=== PATIENT | female | born 1940 | race Caucasian/White ===

== ENCOUNTER → 2016-05-22 | Outpatient (CLI) | payer MEDICARE ==
[~2016-05-22] MED LIST: AMLO5TAB2 PO; ASPI-892 PO; ATOR20TA66 PO; Atorvastatin Calcium PO; CA C1TAB66 PO; CALC-671 PO; CATHETER FLUSH 10 ML SYR IV PRN; CRAN450T9 PO; CRAN500T PO; FAMO20TA5 PO; Famotidine PO; IOHEXOL 350 MG/ML 100 ML (OMNIPAQUE 350) VIAL IV ONE; LOSA100T7 PO; LOSA50TA6 PO; MTP25TSR PO; MULT1CAP27 PO; NAPR-243 PO; NS 100 ML (IVPB) BAG IV ONE; OMEG-11 PO; OMEG-12 PO; SIMV20TA3 PO; SIMV40TA2 PO; TICA90TA PO; Ticagrelor PO
[2016-05-22 08:06] LABS: CREATININE SERUM 1.11 MG/DL (0.60-1.30)
--- NOTE | 2016-05-22 12:07 | Diagnostic Imaging Report ---
CTA of the neck with contrast: INDICATION: Carotid stenosis. FINDINGS: Contiguous axial sections were taken from the midportion of the skull to the lung apices following administration of intravenous contrast. Sagittal and coronal reconstructed images were also performed. MIP and 3D images were not obtained, however. There are no previous CTA neck examinations available for comparison. The previous carotid Doppler exam of 06/28/2013 noted atherosclerotic disease involving both carotid systems as well as a 60-79% stenosis of the internal carotid artery on the left. There was no sign of a hemodynamically significant stenosis of the internal carotid artery on the right. On this exam, there is heavy atherosclerotic plaque involving the origin of the internal carotid artery on the left. There does seem to be a 70-80% stenosis of the vessel in this region and this would be consistent with the findings on the previous ultrasound exam. There is also at least a moderate amount of atherosclerotic plaque involving the carotid bifurcation on the right. There is still no evidence for a hemodynamically significant stenosis in this region. The vertebral arteries are opacified and appear to be codominant. The intracranial arterial circulation, where visualized is unremarkable for an aneurysm of the [place] or for a hemodynamically significant stenosis. The brain, where visualized is also unremarkable for an acute abnormality. There is no sign of a mass lesion either. The images through the neck failed to show any sign of a mass or adenopathy. The thyroid gland is generally unremarkable. The lung apices are clear. The breasts, where visualized show no sign of a mass lesion. According to our records, the patient has not had a mammogram at this facility. If she has not had a mammogram elsewhere in the last 1-2 years, then a follow-up mammogram would be recommended for continued evaluation. The bone windows failed to show any sign of a fracture or of a destructive lesion. 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 IMPRESSION: 1. The atherosclerotic disease involving the carotid systems seen previously is again evident. There still is 70-80% stenosis of the origin of the internal carotid artery on the left. There is no sign of a hemodynamically significant stenosis of the carotid system on the right. The vertebral arteries are codominant. 2. There is no evidence for intracranial aneurysm or for a hemodynamically significant stenosis of the visualized intracranial circulation. 3. There is no acute abnormality identified and there is no mass or adenopathy involving the neck. 4. 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 5. There is no obvious breast mass. Additional considerations as above. Dictated by: Dictated on workstation # [id number]
== END ==
LOC: RAD 07:37
PROVIDERS: ATTEND Internal Medicine Cardiovascular Disease
DX: I65.23 Occlusion and stenosis of bilateral carotid arteries (principal)
CPT/HCPCS: 36415; 70498; 82565; 84520

== ENCOUNTER → 2018-05-03 | Outpatient (CLI) | payer MEDICARE ==
[~2018-05-03] MED LIST changes: -CATHETER FLUSH 10 ML SYR IV PRN; -IOHEXOL 350 MG/ML 100 ML (OMNIPAQUE 350) VIAL IV ONE; -NS 100 ML (IVPB) BAG IV ONE
== END ==
LOC: CARD 09:51
PROVIDERS: ATTEND Internal Medicine Cardiovascular Disease
DX: I25.10 Atherosclerotic heart disease of native coronary artery without angina pectoris (principal); I10 Essential (primary) hypertension; I44.7 Left bundle-branch block, unspecified; E78.5 Hyperlipidemia, unspecified; I48.91 Unspecified atrial fibrillation; I08.3 Combined rheumatic disorders of mitral, aortic and tricuspid valves
CPT/HCPCS: 93306

== ENCOUNTER → 2018-05-04 | Outpatient (CLI) | payer MEDICARE ==
[~2018-05-04] VITALS: Ht 162.6 cm; Wt 64.9 kg
[~2018-05-04] MED LIST changes: +CATHETER FLUSH 10 ML SYR IV PRN; +REGADENOSON 0.4 MG/5 ML SYR (LEXISCAN) IV ONE
[2018-05-04 09:11] VITALS: BP 126/58
[2018-05-04 09:14] VITALS: BP 125/64
--- NOTE | 2018-05-04 14:34 | STRESS TEST ---
DATE OF SERVICE: 05/04/2018 LEXISCAN MYOVIEW STRESS TEST REPORT REFERRING PHYSICIAN: Dr. Oliveira. Baseline heart rate is 53 and baseline blood pressure is 148/64. Baseline EKG is sinus rhythm with left bundle branch block. SUMMARY: The patient received 10.22 mCi of technetium-99 Myoview and the resting images were obtained. Then, the patient received 0.4 mg of Lexiscan followed by 30.2 mCi of technetium-99 Myoview. Throughout the test, there were no EKG changes. The resting and stress images were reviewed and compared in the short axis, horizontal long axis and vertical long axis views. Review of the images showed breast attenuation with reversible ischemia involving the mid to apical anterior wall, true apex, anterolateral wall and anterior septum. SSS is 16. SDS is 8. TID value 1.12. On the gated images, the left ventricle appeared to be in normal size with hypokinesia involving the mid to apical anterior wall true apex. Calculated ejection fraction is 54%. CONCLUSION: 1. The patient tolerated Lexiscan well. 2. Breast attenuation with reversible ischemia involving the mid to apical anterior wall true apex, anterolateral and anterior septum. 3. Normal left ventricular size with hypokinesia at the mid to apical anterior wall, true apex and anterolateral wall. Calculated ejection fraction is 54%. Job ID: [id number] DocumentID: [id number] Dictated Date: 05/04/2018 14:26:18 Slasher Machine Operator Date: 05/04/2018 14:34:06 Dictated By: MARY NESBITT MD
== END ==
LOC: CARD 06:58
PROVIDERS: ATTEND Internal Medicine Cardiovascular Disease
DX: I25.10 Atherosclerotic heart disease of native coronary artery without angina pectoris (principal); I10 Essential (primary) hypertension; I44.7 Left bundle-branch block, unspecified; E78.5 Hyperlipidemia, unspecified; I48.91 Unspecified atrial fibrillation
CPT/HCPCS: 78452; 93017

== ENCOUNTER 2018-05-18 06:43 | Day surgery (SDC) | payer MEDICARE ==
[~2018-05-18] VITALS: Ht 154.9 cm; Wt 61.2 kg
[2018-05-18] VITALS (11 sets, daily range): BP systolic 131–189; BP diastolic 59–72
[~2018-05-18 06:43] MED LIST changes: -CATHETER FLUSH 10 ML SYR IV PRN; +HEParin (CATH LAB) 2,000 ML IV ONE; +LIDOCAINE 1% INJ 20 ML 20 ML VIAL ONE; +NS IV 1000 ML 1,000 ML ONE; -REGADENOSON 0.4 MG/5 ML SYR (LEXISCAN) IV ONE
--- OUTSIDE RECORDS SUMMARY | 2018-05-18 06:46 | XMS REPORT ---
Discharge Summary 2.1 Created on: GIOVANA GARCIA : 1940 Sex: Female Author Author EZEQUIEL MICHELLE Organization Unknown Address [address] [facility] [address] [place], [place] [id number] Care Team Providers Care Record Center Specialist Name Role Phone NGUYEN BLAKE ARELLANO Attending ELI Das DO [facility] Functional Status No Data Found Immunization Immunization Date Status Additional Notes Code Code System pneumococcal polysaccharide PPV23 02/05/2016 Completed 33 CVX Pneumococcal conjugate PCV 13 08/21/2014 Completed 133 CVX Influenza, high dose seasonal 02/05/2016 Completed 135 CVX Influenza, seasonal, injectable 04/17/2014 Completed 141 CVX influenza, injectable, quadrivalent 05/02/2013 Completed 158 CVX influenza, trivalent, adjuvanted 03/22/2017 Completed 168 CVX Mental Status No Data Found Results ELBOW 2 VIEWS - Completed: 02/18/2017 16:24 LOINC: EXAMINATION:RightELBOW 2 VIEWSREASON FOR EXAM:Right elbow trauma COMPARISON: None.FINDINGS:No acute fracture or dislocation.No sizable joint effusion.Small calcific density adjacent to the lateral humeral epicondyle may represent calcific tendinitis.Reviewed and Electronically Signed by: Sheila Siegel Date/Time: 02/18/2017 4:34 PMJob ID#: [id number] Social History Type Status Start Date End Date Code Code System Smoking History Former smoker [id number] SNOMED-CT Smoking History Never smoker (Never Smoked) [id number] SNOMED-CT Vital Signs No Data Found Assessment No Data Found Hospital Discharge Instructions Should you have any questions prior to discharge, please contact a member of your healthcare team. If you have left the hospital and have any questions, please contact your primary care physician. Reason For Referral No Data Found Hospital Course You were admitted to [facility] on 02/18/2017 16:00 with a principal diagnosis of Laceration without foreign body of scalp, initial encounter You were discharged from [facility] on 02/18/2017 17:22 Medications No Data Found Procedures No Data Found Implants No Data Found Problems No Data Found Allergies Allergy Substance Reaction Severity Start Date Concern Status Code Code System No Known Allergies Active RxNorm Plan of Treatment No Data Found Encounters No Data Found Goals No Data Found Discharge Medications No Data Found Discharge Diagnosis Discharge Diagnosis Diagnosis Code Start Date Laceration without foreign body of scalp, initial encounter [id number] 02/18/2017 Health Concerns Section No Data Found
--- OUTSIDE RECORDS SUMMARY | 2018-05-18 06:46 | XMS REPORT | CCD ---
Author Author EZEQUIEL MICHELLE Organization Unknown Address [address] [facility] [address] [place] [address] Care Team Providers Care Group Home Paraprofessional Name Role Phone YUNIEL GONZÁLES MD Attphys Allergies Allergy Code Allergy Type Reaction Status No Known Allergies 0 Drug allergy Active Active Medications Unknown or Not Available. Problems Unknown or Not Available. Procedures Procedure Code Procedure Type Date Cataract removal insertion of lens; (-RT Right side of body) 28606 CPT 07/29/2016 Results Unknown or Not Available. Function Status Unknown or Not Available. History of Immunizations Immunization Code Date pneumococcal polysaccharide PPV23 33 02/05/2016 Pneumococcal conjugate PCV 13 133 08/21/2014 Influenza, high dose seasonal 135 02/05/2016 Influenza, seasonal, injectable 141 04/17/2014 influenza, injectable, quadrivalent 158 05/02/2013 Plan of Treatment Unknown or Not Available. Social History Smoking Status Code Start Date End Date Former smoker [id number] Vital Signs Unknown or Not Available. Function Status Unknown or Not Available. Goals Unknown or Not Available. ASSESSMENTS Unknown or Not Available. Health Concerns Section Unknown or Not Available.
--- OUTSIDE RECORDS SUMMARY | 2018-05-18 06:46 | XMS REPORT | CCD ---
Author Author JACK DUMONT Organization Unknown Address [address] [facility] [address] [place], [place] [id number] Care Team Providers Care Fish Butcher Name Role Phone HANDSHY ER, KEY SALDANA Attphys HANDSHY ER, KEY SALDANA Prisurg Vital Signs Unknown or Not Available. Allergies Allergy Code Allergy Type Reaction Status No Known Allergies 0 No known allergies Active Procedures Procedure Code Procedure Type Date ^CULTURE URINE IDENTIFICATION 427844770 SNOMED CT 2014 CULTURE URINE 749327796 SNOMED CT 02/17/2015 UA ROUTINE C&S IF IND 632378190 SNOMED CT 02/17/2015 COMPREHENSIVE METABOLIC PANEL 877843349 SNOMED CT 2014 CBC W/ AUTO DIFF (RFLX MAN DIFF IF IND) 7663348 SNOMED CT 02/17/2015 ^UA WITH MICRO 752287631 SNOMED CT 02/17/2015 ^CBC W/ MANUAL DIFF 60696052 SNOMED CT 02/17/2015 History of Immunizations Unknown or Not Available. Problems Unknown or Not Available. Results COMPREHENSIVE METABOLIC PANEL - Collect Date/Time: 02/17/2015 11:50 Test Name Code Test Result Test Units Test Ref Range GLUCOSE 2345-7 190 MG/DL L=70 H=100 SODIUM 2951-2 125 MEQ/L L=135 H=148 POTASSIUM 2823-3 4.3 MEQ/L L=3.5 H=5.3 CHLORIDE 2075-0 91 MEQ/L L=96 H=110 CO2 2028-9 17 MEQ/L L=22 H=29 BUN 3094-0 68 MG/DL L=8 H=22 CREATININE 2160-0 6.1 MG/DL L=0.6 H=1.6 SGOT/AST 1920-8 33 IU/L L=10 H=40 SGPT/ALT 1742-6 41 IU/L L=8 H=54 ALK PHOS 6768-6 83 IU/L L=35 H=115 TOTAL PROTEIN 2885-2 6.6 G/DL L=5.5 H=8.5 ALBUMIN 1751-7 3.4 G/DL L=3.1 H=5.4 TOTAL BILI 1975-2 0.9 MG/DL L=0.0 H=1.5 CALCIUM 02494-8 9.5 MG/DL L=8.2 H=10.6 AGE 74 yrs GFR NonAA 7 GFR AA 8 eGFR 7 mL/min/1.7 eGFR AA* 8 mL/min/1.7 CBC W/ AUTO DIFF (RFLX MAN DIFF IF IND) - Collect Date/Time: 02/17/2015 11:50 Test Name Code Test Result Test Units Test Ref Range WBC 95410-5 9.3 TH/CMM L=4.5 H=10.8 RBC 789-8 3.86 ML/CMM L=4.20 H=5.40 HGB 718-7 12.4 G/DL L=12.0 H=16.0 HCT 4544-3 34.6 % L=37.0 H=47.0 MCV 90 FL L=81 H=99 MCH 32.1 PG L=27.0 H=33.0 MCHC 35.8 G/DL L=31.0 H=36.0 RDW SD 44 FL L=36 H=50 RDW CV 13.5 % L=0.0 H=14.8 MPV 9.7 FL L=9.3 H=12.5 PLT 777-3 165 TH/CMM L=130 H=440 NRBC# 0.00 TH/CMM L=0.00 H=0.00 NRBC% 0.0 /100WBC L=0.0 H=2.0 %NEUT 93.3 % %LYMP 2.2 % %MONO 3.9 % %EOS 0.5 % %BASO 0.1 % #NEUT 8.66 TH/CMM L=2.10 H=8.20 #LYMP 0.20 TH/CMM L=0.90 H=5.20 #MONO 0.36 TH/CMM L=0.16 H=1.00 #EOS 0.05 TH/CMM L=0.00 H=0.80 #BASO 0.01 TH/CMM L=0.00 H=0.20 SEGS 53 % BANDS 43 % LYMPHS 3 % MONOS 1 % MANUAL DIFF SEE BELOW N/A UA ROUTINE C&S IF IND - Collect Date/Time: 02/17/2015 12:25 Test Name Code Test Result Test Units Test Ref Range COLOR YELLOW N/A NL: YELLOW APPEARANCE CLEAR N/A NL: CLEAR SPEC GRAV 1.015 N/A NL: 1.002 - 1.022 pH 6.5 N/A NL: 5 - 9 PROTEIN >=300 N/A NL: NEGATIVE mg/dl GLUCOSE NEGATIVE N/A NL: NEGATIVE mg/dl KETONE NEGATIVE N/A NL: NEGATIVE mg/dl BILIRUBIN NEGATIVE N/A NL: NEGATIVE BLOOD MODERATE N/A NL: NEGATIVE NITRITE NEGATIVE N/A NL: NEGATIVE LEUK SCREEN MODERATE N/A NL: NEGATIVE MICRO INDICATED? SEE BELOW N/A WBC/HPF 100-200 N/A NL: NEGATIVE RBC/HPF 10-20 N/A NL: NEGATIVE CASTS/LPF NEGATIVE N/A NL: NEGATIVE CRYSTALS 1+ AMORPHOUS N/A NL: NEGATIVE MUCOUS THRDS FEW N/A NL: NEGATIVE BACTERIA 2++ N/A NL: NEGATIVE EPITH CELLS 1+ SQUAMOUS N/A NL: NEGATIVE TRICHOMONAS NEGATIVE N/A NL: NEGATIVE YEAST NEGATIVE N/A NL: NEGATIVE CULT SET UP? YES N/A Active Medications Unknown or Not Available. Medications Administered During Visit Unknown or Not Available. Encounters Encounter Diagnosis Diagnosis Code Start Date Acute renal failure syndrome [id number] 02/17/2015 Social History Smoking Status Code Start Date End Date Former smoker [id number] Patient Decision Aids Unknown or Not Available. Discharge Instructions You were admitted to [facility] on 02/17/2015 with a principal diagnosis of Acute renal failure syndrome . You were discharged from [facility] on 02/17/2015. Should you have any questions prior to discharge, please contact a member of your healthcare team. If you have left the hospital and have any questions, please contact your primary care physician. Chief Complaint and Reason For Visit Chief Complaint Date of Onset ABDOMINAL PAIN LEG PAIN SHOULDER PAIN Function Status Unknown or Not Available. Plan of Care Unknown or Not Available. Referral/Transition of Care Unknown or Not Available.
--- OUTSIDE RECORDS SUMMARY | 2018-05-18 06:47 | XMS REPORT | CCD ---
Author Author JACK DUMONT Organization Unknown Address [address] [facility] [address] [place], [place] [phone] Care Team Providers Care Iron And Steel Work Supervisor Name Role Phone NGUYEN, BLAKE DO Attphys NGUYENJOZEFBLAKE DO Prisurg Vital Signs Unknown or Not Available. Allergies Allergy Code Allergy Type Reaction Status No Known Allergies 0 No known allergies Active Procedures Procedure Code Procedure Type Date CBC W/ AUTO DIFF (RFLX MAN DIFF IF IND) 3889085 SNOMED CT 02/27/2015 COMPREHENSIVE METABOLIC PANEL 109064495 SNOMED CT [address] 02/27/[address] 02/27/2015 LACTIC ACID 4219325 SNOMED [address] 02/27/2015 C REACTIVE PROTEIN 96394100 SNOMED CT 02/27/2015 SED RATE 809177839 SNOMED CT 02/27/2015 UA ROUTINE C&S IF IND 063876383 SNOMED CT 02/27/2015 ^CBC W/ MANUAL DIFF 33790606 SNOMED CT 02/27/2015 CULTURE URINE 196471671 SNOMED CT 02/27/2015 ^UA WITH MICRO 171251675 SNOMED CT 02/28/2015 TYPE AND SCREEN 34666836 SNOMED CT 02/28/2015 H and H 00588237 SNOMED CT 02/28/2015 .BB FFP 350116119 SNOMED CT 02/28/2015 ABDOMEN 2 VIEW DECUB/UPRIGHT 089717028 SNOMED CT 2014 [address] ABD AND PELVIS W/WO CONTRAST 796216905 SNOMED CT 2014 LOCM 300-349 MG/ML, PER ML 192326831 SNOMED CT 02/28/2015 History of Immunizations Unknown or Not Available. Problems Unknown or Not Available. Results COMPREHENSIVE METABOLIC PANEL - Collect Date/Time: 02/27/2015 23:05 Test Name Code Test Result Test Units Test Ref Range GLUCOSE 2345-7 173 MG/DL L=70 H=100 SODIUM 2951-2 136 MEQ/L L=135 H=148 POTASSIUM 2823-3 3.3 MEQ/L L=3.5 H=5.3 CHLORIDE 2075-0 105 MEQ/L L=96 H=110 CO2 2028-9 15 MEQ/L L=22 H=29 BUN 3094-0 27 MG/DL L=8 H=22 CREATININE 2160-0 1.5 MG/DL L=0.6 H=1.6 SGOT/AST 1920-8 20 IU/L L=10 H=40 SGPT/ALT 1742-6 20 IU/L L=8 H=54 ALK PHOS 6768-6 72 IU/L L=35 H=115 TOTAL PROTEIN 2885-2 6.1 G/DL L=5.5 H=8.5 ALBUMIN 1751-7 3.4 G/DL L=3.1 H=5.4 TOTAL BILI 1975-2 1.1 MG/DL L=0.0 H=1.5 CALCIUM 20657-8 8.5 MG/DL L=8.2 H=10.6 AGE 74 yrs GFR NonAA 34 GFR AA 41 eGFR 34 mL/min/1.7 eGFR AA* 41 mL/min/1.7 LIPASE - Collect Date/Time: 02/27/2015 23:05 Test Name Code Test Result Test Units Test Ref Range LIPASE 3040-3 316 U/L L=8 H=78 CBC W/ AUTO DIFF (RFLX MAN DIFF IF IND) - Collect Date/Time: 02/27/2015 23:05 Test Name Code Test Result Test Units Test Ref Range WBC 23014-6 13.4 TH/CMM L=4.5 H=10.8 RBC 789-8 2.75 ML/CMM L=4.20 H=5.40 HGB 718-7 8.7 G/DL L=12.0 H=16.0 HCT 4544-3 25.4 % L=37.0 H=47.0 MCV 92 FL L=81 H=99 MCH 31.6 PG L=27.0 H=33.0 MCHC 34.3 G/DL L=31.0 H=36.0 RDW SD 51 FL L=36 H=50 MPV 8.8 FL L=9.3 H=12.5 PLT 777-3 437 TH/CMM L=130 H=440 %NEUT 87.7 % %LYMP 7.2 % %MIXED 5.10 % L=2.00 H=25.00 #NEUT 11.70 TH/CMM L=2.10 H=8.20 #LYMP 1.00 TH/CMM L=0.90 H=5.20 #MIXED 0.70 TH/CMM SEGS 85 % BANDS 6 % LYMPHS 5 % MONOS 4 % MANUAL DIFF SEE BELOW N/A H and H - Collect Date/Time: 02/28/2015 03:10 Test Name Code Test Result Test Units Test Ref Range HGB 718-7 8.4 G/DL L=12.0 H=16.0 HCT 4544-3 24.6 % L=37.0 H=47.0 SED RATE - Collect Date/Time: 02/27/2015 23:05 Test Name Code Test Result Test Units Test Ref Range SEDRATE 4537-7 111 MM/HR L=0 H=30 PT/PTT - Collect Date/Time: 02/27/2015 23:05 Test Name Code Test Result Test Units Test Ref Range PROTIME 45621-0 43.2 SEC L=9.9 H=11.9 INR 4.1 PTT 3173-2 47.6 SEC L=22.2 H=37.2 UA ROUTINE C&S IF IND - Collect Date/Time: 02/28/2015 00:01 Test Name Code Test Result Test Units Test Ref Range COLOR YELLOW N/A NL: YELLOW APPEARANCE CLEAR N/A NL: CLEAR SPEC GRAV 1.020 N/A NL: 1.002 - 1.022 pH 6.0 N/A NL: 5 - 9 PROTEIN 30 N/A NL: NEGATIVE mg/dl GLUCOSE 100 N/A NL: NEGATIVE mg/dl KETONE 15 N/A NL: NEGATIVE mg/dl BILIRUBIN NEGATIVE N/A NL: NEGATIVE BLOOD MODERATE N/A NL: NEGATIVE NITRITE NEGATIVE N/A NL: NEGATIVE LEUK SCREEN SMALL N/A NL: NEGATIVE MICRO INDICATED? SEE BELOW N/A WBC/HPF 10-20 N/A NL: NEGATIVE RBC/HPF 0-5 N/A NL: NEGATIVE CASTS/LPF NEGATIVE N/A NL: NEGATIVE CRYSTALS NEGATIVE N/A NL: NEGATIVE MUCOUS THRDS NEGATIVE N/A NL: NEGATIVE BACTERIA FEW N/A NL: NEGATIVE EPITH CELLS 2++ SQUAMOUS N/A NL: NEGATIVE TRICHOMONAS NEGATIVE N/A NL: NEGATIVE YEAST NEGATIVE N/A NL: NEGATIVE CULT SET UP? YES N/A .BB FFP - Collect Date/Time: 02/28/2015 04:02 Test Name Code Test Result Test Units Test Ref Range Unit Blood Type O Pos N/A Unit Number [id number] FFP CPD N/A Status Information Ready N/A Product Identification FFP N/A TYPE AND SCREEN - Collect Date/Time: 02/28/2015 03:10 Test Name Code Test Result Test Units Test Ref Range ABO/Rh Type O Negative N/A Antibody Screen-Gel Negative N/A C REACTIVE PROTEIN - Collect Date/Time: 02/27/2015 23:05 Test Name Code Test Result Test Units Test Ref Range C REACTIVE PROTEIN 1988-5 9.3 MG/DL L=0.0 H= 1.0 LACTIC ACID - Collect Date/Time: 02/27/2015 23:05 Test Name Code Test Result Test Units Test Ref Range LACTIC ACID 2524-7 1.4 mmol/L L=0.5 H=1.6 MAGNESIUM - Collect Date/Time: 02/27/2015 23:05 Test Name Code Test Result Test Units Test Ref Range MAGNESIUM 54512-8 1.1 MG/DL L=1.7 H=2.8 Active Medications Medication Code Dose Units Frequency Route Modification Start Date/Time PHYTONADIONE [VITAMIN K] 10MG/ML AMP 471593 10 MG X1 SQ 02/28/2015 03:25 Medications Administered During Visit Unknown or Not Available. Encounters Encounter Diagnosis Diagnosis Code Start Date Acute pancreatitis, unspecified K859 02/27/2015 Social History Smoking Status Code Start Date End Date Former smoker [id number] Patient Decision Aids Unknown or Not Available. Discharge Instructions You were admitted to [facility] on 02/27/2015 with a principal diagnosis of Acute pancreatitis, unspecified. You were discharged from [facility] on 02/28/2015. Should you have any questions prior to discharge, please contact a member of your healthcare team. If you have left the hospital and have any questions, please contact your primary care physician. Chief Complaint and Reason For Visit Chief Complaint Date of Onset UNKNOWN Function Status Unknown or Not Available. Plan of Care Unknown or Not Available. Referral/Transition of Care Unknown or Not Available.
--- OUTSIDE RECORDS SUMMARY | 2018-05-18 06:49 | XMS REPORT | Clinical Summary ---
Author Author User, ABILIO Deidra [facility] Address Unknown Phone Allergies, Adverse Reactions, Alerts Allergy Name Reaction Description Start Date Severity Status Provider No Known Allergies Sonny Mendiola Conditions or Problems Problem Name Problem Code Onset Date Status Entry Date Provider Comment Standard Description Annotate CERUMEN IMPACTION, BILATERAL 380.4 Resolved Viola Oliveira Impacted cerumen ELEVATED BLOOD PRESSURE WITHOUT DIAGNOSIS OF HYPERTENSION 796.2 Resolved Viola Oliveira Elevated blood pressure reading without diagnosis of hypertension HYPERCHOLESTEROLEMIA 272.0 Active Viola Oliveira Pure hypercholesterolemia OSTEOARTHRITIS 715.90 Active Viola Oliveira Osteoarthrosis, unspecified whether generalized or localized, involving unspecified site ONYCHOMYCOSIS, TOENAILS 110.1 Resolved Viola Oliveira Dermatophytosis of nail HYPERTRIGLYCERIDEMIA 272.1 Active Viola Oliveira Pure hyperglyceridemia HYPERTENSION 401.1 Active Viola Oliveira Benign essential hypertension VACCINE AGAINST STREPTOCOCCUS PNEUMONIAE V03.82 Resolved Viola Oliveira Need for prophylactic vaccination against Streptococcus pneumoniae [pneumococcus] VAGINAL DISCHARGE 623.5 Resolved Viola Oliveira Leukorrhea, not specified as infective 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 Viola Oliveira Intestinal disaccharidase deficiencies and disaccharide malabsorption DIABETES MELLITUS, NONINSULIN DEPENDENT (NIDDM) 250.02 Active Viola Oliveira Diabetes mellitus without mention of complication, type II or unspecified type, uncontrolled BUNDLE BRANCH BLOCK, LEFT 426.3 Active Viola Oliveira Other left bundle branch block CAROTID ARTERY STENOSIS, BILATERAL 433.10 Active Viola Oliveira Occlusion and stenosis of carotid artery, without mention of cerebral infarction EDEMA LEG 782.3 Resolved Viola Oliveira Edema SHOULDER PAIN 719.41 Active Viola Oliveira Pain in joint involving shoulder region ACTINIC KERATOSIS 702.0 Resolved Viola Oliveira Actinic keratosis SYNCOPE 780.2 Active Viola Oliveira Syncope and collapse Medication List Medication Instructions Start Date Stop Date Generic Name NDC Status Provider Patient Instruction TOPROL XL 25 MG TB24 1 PO daily METOPROLOL SUCCINATE 29513366710 Active Viola Oliveira LASIX 20 MG TAB 1 PO QD FUROSEMIDE 11998458478 No Longer Active Viola Oliveira COZAAR 50 MG TAB 1 PO daily LOSARTAN POTASSIUM 18350505136 Active Viola Oliveira NORVASC 5 MG TAB 1 PO QD AMLODIPINE BESYLATE 30644571409 No Longer Active Viola Oliveira SIMVASTATIN 20 MG TABS 1 PO Daily SIMVASTATIN 89860504970 Active Viola Oliveira LIDOCAINE-PRILOCAINE 2.5-2.5 % CREA Apply to affected areas BID prn LIDOCAINE-PRILOCAINE 05342899738 Active Viola Oliveira [facility] CORTISONE + MAX ST 1 % CREA apply to affected areas BID prn HYDROCORTISONE 71997352412 No Longer Active Viola Oliveira ASPIRIN 81 MG TAB 1 PO daily ASPIRIN 94129924504 Active Viola Oliveira PREMARIN 0.625 MG/GM CREA 1/2 applicatorfull per vagina twcie weekly ESTROGENS, CONJUGATED VAGINAL 94677191694 Active Sharita Lee LAMISIL 250 MG TAB 1 PO daily for 6 weeks TERBINAFINE HCL 77599931476 No Longer Active Viola Maci Roxanne COLACE 60 MG/15ML SYRP 3 drops in right ear, let stand for 10 minutes then rinse with warm water for 7 days (provide bottle with dropper) 2010 DOCUSATE SODIUM 27698466394 No Longer Active Violayessi Laceye Roxanne LAMISIL 250 MG TAB 1 PO daily for 6 weeks TERBINAFINE HCL 32521947167 No Longer Active Violayessi Oliveira CRANBERRY 500 MG CAPS 1 PO daily CRANBERRY 95914442826 Active Violayessi Oliveira GLUCOSAMINE CHONDR 1500 COMPLX CAPS 1 PO daily GLUCOSAMINE-CHONDROIT- VIT C-MN 93160681685 Active Violayessi Oliveira CALTRATE 600 PLUS-VIT D 600-200 MG-IU TABS 1 PO BID CALCIUM-VITAMIN D Active Violayessi Laceye Roxanne FISH OIL 1000 MG CAPS 1 PO daily OMEGA-3 FATTY ACIDS 57933504519 Active Viola Maci Roxanne NAPROXEN 500 MG TABS 1 PO BID NAPROXEN 19953515067 Active Viola Oliveira Immunizations Vaccine Administration Date Value Standard Description Influenza vaccine given DONE influenza virus vaccine, unspecified formulation Influenza vaccine given Done influenza virus vaccine, unspecified formulation pneumococcal immunization administered Dr Oliveira pneumococcal polysaccharide vaccine, 23 valent Vital Signs Date Name Value Unit Range Description blood pressure, diastolic - 8462-4 80 mm[Hg] BP calix blood pressure, systolic - 8480-6 140 mm[Hg] BP sys pulse rate E&M - 8867-4 68 /min Heart rate respiratory rate E&M - 9279-1 14 /min Resp rate temperature E&M 98.6 [degF] Body temperature weight E&M - 3141-9 145 [lb_av] Weight Measured blood pressure, diastolic - 8462-4 70 mm[Hg] BP calix blood pressure, systolic - 8480-6 130 mm[Hg] BP sys pulse rate E&M - 8867-4 68 /min Heart rate respiratory rate E&M - 9279-1 14 /min Resp rate weight E&M - 3141-9 141 [lb_av] Weight Measured blood pressure, diastolic - 8462-4 74 mm[Hg] BP calix blood pressure, systolic - 8480-6 132 mm[Hg] BP sys pulse rate E&M - 8867-4 66 /min Heart rate respiratory rate E&M - 9279-1 14 /min Resp rate weight E&M - 3141-9 248 [lb_av] Weight Measured blood pressure, diastolic - 8462-4 72 mm[Hg] BP calix blood pressure, systolic - 8480-6 142 mm[Hg] BP sys pulse rate E&M - 8867-4 76 /min Heart rate respiratory rate E&M - 9279-1 14 /min Resp rate temperature E&M 98.6 [degF] Body temperature weight E&M - 3141-9 145 [lb_av] Weight Measured blood pressure, diastolic - 8462-4 60 mm[Hg] BP calix blood pressure, systolic - 8480-6 134 mm[Hg] BP sys pulse rate E&M - 8867-4 76 /min Heart rate respiratory rate E&M - 9279-1 14 /min Resp rate weight E&M - 3141-9 142 [lb_av] Weight Measured blood pressure, diastolic - 8462-4 74 mm[Hg] BP calix blood pressure, systolic - 8480-6 150 mm[Hg] BP sys pulse rate E&M - 8867-4 76 /min Heart rate respiratory rate E&M - 9279-1 14 /min Resp rate weight E&M - 3141-9 142 [lb_av] Weight Measured Diagnostic Results Date Name Value Unit Range Description Clinical Lists Update: CBC,CMP,FLP,TSH,HGA1C - Chemistry Estimated Glomerular Filtration Rate (calc) >60 mL/min/1.73m2 albumin, serum 4.6 g/dL cholesterol/HDL ratio, serum, percent 4.1 sodium, serum 142 mmol/L triglyceride, serum, fasting 142 mg/dL bilirubin, serum, total 1.0 mg/dL alanine aminotransferase (SGPT), serum 24 U/L aspartate aminotransferase (SGOT), serum 24 U/L protein, total, serum 7.5 g/dL potassium, serum 4.0 mmol/L LDL cholesterol, serum 115 mg/dL thyroid stimulating hormone, serum 3.10 u[iU]/mL hemoglobin A1C, blood, as % of total hemoglobin 6.0 % HDL cholesterol, serum 46 mg/dL creatinine, serum 0.8 mg/dL carbon dioxide, venous blood 26 mmol/L cholesterol, serum 189 mg/dL chloride, serum 105 mmol/L calcium, serum 10.1 mg/dL urea nitrogen, blood 23 mg/dL alkaline phosphatase, serum 66 U/L glucose, plasma fasting 130 mg/dL Clinical Lists Update: CBC,CMP,FLP,TSH,HGA1C - Hematology red blood cell distribution width 13.4 % mean corpuscular volume, RBC 94 fL leukocyte count, blood 6.0 10*3/mm3 erythrocyte (RBC) count 4.79 10*6/mm3 platelet count 272 10*3/mm3 hemoglobin, blood 15.0 g/dL hematocrit, blood 44.8 % Clinical Lists Update: CMP,Chol,Trig,HgA1c - Chemistry albumin, serum 4.1 g/dL bilirubin, serum, total 0.8 mg/dL potassium, serum 3.7 mmol/L urea nitrogen, blood 18 mg/dL glucose, plasma fasting 131 mg/dL calcium, serum 9.9 mg/dL protein, total, serum 7.2 g/dL chloride, serum 105 mmol/L triglyceride, serum, fasting 131 mg/dL cholesterol, serum 174 mg/dL aspartate aminotransferase (SGOT), serum 20 U/L carbon dioxide, venous blood 28 mmol/L Estimated Glomerular Filtration Rate (calc) >60 mL/min/1.73m2 creatinine, serum 0.7 mg/dL alanine aminotransferase (SGPT), serum 21 U/L sodium, serum 145 mmol/L hemoglobin A1C, blood, as % of total hemoglobin 7.2 % alkaline phosphatase, serum 67 U/L Clinical Lists Update: CMP,FLP,HgA1c - Chemistry alkaline phosphatase, serum 60 U/L albumin, serum 4.1 g/dL urea nitrogen, blood 20 mg/dL calcium, serum 9.3 mg/dL chloride, serum 106 mmol/L cholesterol, serum 185 mg/dL carbon dioxide, venous blood 26 mmol/L creatinine, serum 0.7 mg/dL HDL cholesterol, serum 43 mg/dL hemoglobin A1C, blood, as % of total hemoglobin 7.4 % potassium, serum 4.0 mmol/L protein, total, serum 7.1 g/dL aspartate aminotransferase (SGOT), serum 24 U/L alanine aminotransferase (SGPT), serum 20 U/L bilirubin, serum, total 0.7 mg/dL triglyceride, serum, fasting 174 mg/dL sodium, serum 143 mmol/L cholesterol/HDL ratio, serum, percent 4.3 glucose, plasma fasting 124 mg/dL Estimated Glomerular Filtration Rate (calc) 82 mL/min/1.73m2 LDL cholesterol, serum 107 mg/dL Encounters Code Encounter Date Provider Facility CPT-44344 Ofc Vst, Est Level III 21:25:49 CDT Ivolayessi Oliveira DO, FACP CPT-78566 Ofc Vst, Est Level III 15:36:35 [facility] Viola Oliveira DO, FACP CPT-88126 Ofc Vst, Est Level IV 20:17:06 CDT Viola Oliveira DO, FACP CPT-08266 Ofc Vst, Est Level III 14:15:34 CDT Violayessi Oliveira DO, FACP CPT-15652 Ofc Vst, Est Level III 21:32:22 CDT Violayessi Oliveira [facility] CPT-76329 Ofc Vst, Est Level III 13:00:17 CDT Viola Oliveira DO, FACP CPT-24136 Ofc Vst, Est Level IV 16:22:26 CDT Violayessi Oliveira [facility] CPT-92126 Ofc Vst, Est Level IV 10:26:19 CDT Violayessi Oliveira [facility] CPT-31160 Ofc Vst, Est Level IV 10:32:54 [facility] Viola Oliveira DO, FACP CPT-68691 Ofc Vst, Est Level IV 11:02:12 CDT Violayessi Oliveira DO, FACP CPT-53038 Ofc Vst, Est Level IV 11:21:29 [facility] Viola Oliveira DO, FACP CPT-88849 Ofc Vst, Est Level III 10:23:18 [facility] Viola Oliveira DO, FACP CPT-99775 Ofc Vst, New Level IV 13:34:26 [facility] Viola Oliveira DO, FACP Procedures Code Procedure Name Date Entry Date Standard Description CPT-G0439 Medicare Annual Wellness Visit 16:28:55 CDT CPT-11558 Cryopathy Skin 20:17:06 CDT CPT-G8445 E-Prescribing Not sent due to no medication given 21:32: 22 CDT CPT-G8443 E-Prescribing Medication Sent 19:59:24 [facility] CPT-79899 Ear Wax Removal 19:59:24 [facility] CPT-G0439 Medicare Annual Wellness Visit 19:59:24 [facility] CPT-G8443 E-Prescribing Medication Sent 13:00:17 CDT CPT-G8443 E-Prescribing Medication Sent 13:12:57 [facility] CPT-G0439 Medicare Annual Wellness Visit 13:12:57 [facility] CPT-G0402 Medicare Annual Wellness Visit Initial 11:01:02 CDT CPT-00606 Ear Wax Removal 11:02:12 CDT CPT-63064 Injection, Pneumovax 11:02:12 CDT CPT-58688 Ear Wax Removal 10:23:18 [facility]
--- OUTSIDE RECORDS SUMMARY | 2018-05-18 06:49 | XMS REPORT | Clinical Summary ---
Author Author User, ABILIO Deidra [facility] Address Unknown Phone Allergies, Adverse Reactions, [...] MG TB24 1 PO daily METOPROLOL SUCCINATE 77601903412 Active Viola Oliveira LASIX 20 MG TAB 1 PO QD FUROSEMIDE 97307644845 No Longer Active Viola Oliveira COZAAR 50 MG TAB 1 PO daily LOSARTAN POTASSIUM 08868756289 Active Viola Oliveira NORVASC 5 MG TAB 1 PO QD AMLODIPINE BESYLATE 48794723209 No Longer Active Viola Oliveira SIMVASTATIN 20 MG TABS 1 PO Daily SIMVASTATIN 37478602410 Active Viola Oliveira LIDOCAINE-PRILOCAINE 2.5-2.5 % CREA Apply to affected areas BID prn LIDOCAINE-PRILOCAINE 48926350652 Active Viola Oliveira [facility] CORTISONE + MAX ST 1 % CREA apply to affected areas BID prn HYDROCORTISONE 35398578405 No Longer Active Viola Oliveira ASPIRIN 81 MG TAB 1 PO daily ASPIRIN 61879589982 Active Viola Oliveira PREMARIN 0.625 MG/GM CREA 1/2 applicatorfull per vagina twcie weekly ESTROGENS, CONJUGATED VAGINAL 30697581876 Active Sharita Lee LAMISIL 250 MG TAB 1 PO daily for 6 weeks TERBINAFINE HCL 27928865924 No Longer Active Viola Maci Roxanne COLACE 60 MG/15ML SYRP 3 drops in right ear, let stand for 10 minutes then rinse with warm water for 7 days (provide bottle with dropper) 2010 DOCUSATE SODIUM 05336388688 No Longer Active Violayessi Laceye Roxanne LAMISIL 250 MG TAB 1 PO daily for 6 weeks TERBINAFINE HCL 79211373862 No Longer Active Violayessi Oliveira CRANBERRY 500 MG CAPS 1 PO daily CRANBERRY 39248615856 Active Violayessi Oliveira GLUCOSAMINE CHONDR 1500 COMPLX CAPS 1 PO daily GLUCOSAMINE-CHONDROIT- VIT C-MN 18336919118 Active Violayessi Oliveira CALTRATE 600 PLUS-VIT D 600-200 MG-IU TABS 1 PO BID CALCIUM-VITAMIN D Active Violayessi Oliveira FISH OIL 1000 MG CAPS 1 PO daily OMEGA-3 FATTY ACIDS 83231480786 Active Viola Maci Roxanne NAPROXEN 500 MG TABS 1 PO BID NAPROXEN 04617428030 Active Viola Oliveira Immunizations Vaccine Administration Date Value Standard Description Influenza vaccine given DONE influenza virus vaccine, unspecified formulation Influenza vaccine given Done influenza virus vaccine, unspecified formulation pneumococcal immunization administered Dr Oliveira pneumococcal polysaccharide vaccine, 23 valent Vital Signs Date Name Value Unit Range Description blood pressure, diastolic - 8462-4 70 mm[Hg] [...] mg/dL Encounters Code Encounter Date Provider Facility CPT-20199 Ofc Vst, Est Level III 21:25:49 CDT Violayessi Das Roxanne, DO, FACP CPT-31936 Ofc Vst, Est Level III 15:36:35 [facility] Viola Das Roxanne, DO, FACP CPT-24292 Ofc Vst, Est Level IV 20:17:06 CDT Viola Maci Das Roxanne, DO, FACP CPT-27444 Ofc Vst, Est Level III 14:15:34 CDT Viola Maci Das Roxanne, DO, FACP CPT-87040 Ofc Vst, Est Level III 21:32:22 CDT Viola Maci Olive[facility] CPT-47142 Ofc Vst, Est Level III 13:00:17 CDT Violayessi Das Roxanne, DO, FACP CPT-67969 Ofc Vst, Est Level IV 16:22:26 CDT Viola Maci Olive[facility] CPT-96817 Ofc Vst, Est Level IV 10:26:19 CDT Viola Maci Olive[facility] CPT-75205 Ofc Vst, Est Level IV 10:32:54 [facility] Viola Das Roxanne, DO, FACP CPT-81717 Ofc Vst, Est Level IV 11:02:12 CDT Violayessi Das Roxanne, DO, FACP CPT-19306 Ofc Vst, Est Level IV 11:21:29 [facility] Viola Simmonsner Viola Das Roxanne, DO, FACP CPT-13503 Ofc Vst, Est Level III 10:23:18 [facility] Viola Simmonsner Violayessi Oliveira, DO, FACP CPT-38518 Ofc Vst, New Level IV 13:34:26 [facility] Viola Das Roxanne, DO, FACP Procedures Code Procedure Name Date Entry Date Standard Description CPT-G0439 Medicare Annual Wellness Visit 16:28:55 CDT CPT-89371 Cryopathy Skin 20:17:06 CDT CPT-G8445 E-Prescribing Not sent due to no medication given 21:32: 22 CDT CPT-G8443 E-Prescribing Medication Sent 19:59:24 [facility] CPT-27374 Ear Wax Removal 19:59:24 [facility] CPT-G0439 Medicare Annual Wellness Visit 19:59:24 [facility] CPT-G8443 E-Prescribing Medication Sent 13:00:17 CDT CPT-G8443 E-Prescribing Medication Sent 13:12:57 [facility] CPT-G0439 Medicare Annual Wellness Visit 13:12:57 [facility] CPT-G0402 Medicare Annual Wellness Visit Initial 11:01:02 CDT CPT-97801 Ear Wax Removal 11:02:12 CDT CPT-94505 Injection, Pneumovax 11:02:12 CDT CPT-55166 Ear Wax Removal 10:23:18 [facility]
--- OUTSIDE RECORDS SUMMARY | 2018-05-18 06:51 | XMS REPORT ---
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 Medications Active Name Start Date Estimated Completion Date SIG Comments Tessalon Perles 100 mg oral capsule 05/24/2015 take 1 capsule (100 mg) by oral route every 4 hours as needed Name Start Date Expiration Date SIG Comments simvastatin 40 mg oral tablet 04/29/2009 08/27/2009 take 1 tablet (40 mg) by oral route once daily in the evening for 30 days hydrocortisone acetate 1 % topical ointment 06/24/2009 07/08/2009 apply to the affected area(s) by topical route 2 times per day for 14 days Naprosyn 500 mg oral tablet 06/24/2009 11/21/2009 take 1 tablet (500 mg) by oral route every 12 hours with food for 30 days Zithromax Z-Anuj 250 mg oral tablet 05/22/2015 05/27/2015 take 2 tablets (500 mg ) by oral route once daily for 1 day then 1 tablet (250 mg) by oral route once daily for 4 days Problem List Not available. Vital Signs Date Time BP-Sys(mm[Hg] BP-Leticia(mm[Hg]) HR(bpm) RR(rpm) Temp WT HT HC BMI BSA BMI Percentile O2 Sat(%) 05/28/2015 11:07:00 AM 144 mmHg 78 mmHg 68 bpm 18 rpm 98.1 F 132 lbs 97 % 05/22/2015 2:16:00 PM 122 mmHg 70 mmHg 68 bpm 18 rpm 98.2 F 131 lbs 64 in 22.4859 kg/m 1.638 m 98 % 05/27/2009 9:28:00 AM 146 mmHg 92 mmHg 80 bpm 18 rpm 149 lbs Social History Name Description Comments Quit Smoking started in 1959 and quit in 1977 Alcohol Use - Occasional 1 drink weekly. History of Procedures Date Ordered Description Order Status 04/23/2009 12:00 AM ROUTINE VENIPUNCTURE Reviewed 04/23/2009 12:00 AM COMPLETE CBC W/AUTO DIFF WBC Reviewed 04/23/2009 12:00 AM COMPREHEN METABOLIC PANEL Reviewed 04/23/2009 12:00 AM LIPID PANEL Reviewed Results Summary Data and Description Results 05/27/2009 9:49 AM Cholest Cry Stone Ql IR 184.0 %Mammogram -Women over 40 Ordered Pap Smear Negative History Of Immunizations Not available. 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 9:30AM Onychomycosis Of Toenail May 27 2009 9:30AM Eustachian tube dysfunction, bilateral b 2015 2:16PM Moderate Acute Cough b 2015 2:16PM Mild Acute Post-nasal drainage b 2015 2:16PM Upper respiratory tract infection, unspecified type b 2015 2:16PM Mild Acute Respiratory System And Chest Symptoms b 2015 2:16PM Upper respiratory tract infection, unspecified type b 2015 6:33AM Payers Insurance Name Company Name Plan Name Plan Number Policy Number Policy Group Number Start Date Medicare Part A Medicare Part A [id number] N/A BCBS [facility] [id number] Friday, 2009 Medicare Part B Medicare Of [place] [id number] Friday, 2004 History of Encounters Visit Date Visit Type Provider 05/28/2015 Office visit GEMINI MAXWELL 05/22/2015 Office visit GEMINI MAXWELL 12/17/2011 Hospital Sp[facility]er Hurtado MD 05/27/2009 Office visit Lang Meraz DO 02/07/2009 Office visit Lang Meraz DO 01/09/2009 Laboratory Cathleen MAXWELL
--- OUTSIDE RECORDS SUMMARY | 2018-05-18 06:53 | XMS REPORT | Continuity of Care Document ---
Author Author [facility] Address Unknown Phone Unavailable Allergies Active Description Code Type Severity Reaction Onset Reported/Identified Relationship to Patient Clinical Status Yes No Known Allergies [id number] N /A N/A Yes BRILINTA MILD OTHER Yes CODEINE SULFATE MILD OTHER Yes No Known Drug Allergies [id number] Drug Allergy Unknown N/A 01/05/2012 Medications Medication Packaging Start Date Stop Date Route Dosage Sig LACTATED RINGERS 1000CC IV BAG INJ ml 12/15/2017 12/22/2017 CONTINUOUSEVERY 0 Hour Problems Date Dx Coded Attending Type Code Diagnosis Diagnosed By 10/03/2014 MARY NESBITT MD Ot 272.4 10/03/2014 MARY NESBITT MD Ot 401.9 10/03/2014 MARY NESBITT MD Ot 426.3 10/03/2014 MARY NESBITT MD Ot 745.5 10/04/2014 GEE THOMAS Ot 272.4 HYPERLIPIDEMIA NEC/NOS 10/04/2014 GEE THOMAS Ot 401.9 HYPERTENSION NOS 10/04/2014 GEE THOMAS Ot 414.01 CORONARY ATHEROSCLEROSIS OF [place] CORON 10/04/2014 GEE THOMAS Ot 426.3 LEFT BB BLOCK NEC 10/04/2014 GEE THOMAS Ot 427.89 CARDIAC DYSRHYTHMIAS NEC 10/04/2014 GEE THOMAS Ot 433.10 CAROTID ARTERY OCCLUSION W O CEREBRAL IN 10/04/2014 GEE THOMAS Ot 745.5 SECUNDUM ATRIAL SEPT DEF 10/04/2014 GEE THOMAS Ot 780.2 SYNCOPE AND COLLAPSE 10/04/2014 GEE THOMAS Ot 794.30 ABN CARDIOVASC STUDY NOS 10/04/2014 GEE THOMAS Ot V58.69 OT MED,LT,CURRENT USE 10/15/2014 MARY NESBITT MD Ot 272.4 10/15/2014 MARY NESBITT MD Ot 401.9 10/15/2014 MARY NESBITT MD Ot 426.3 10/15/2014 MARY NESBITT MD Ot 745.5 10/25/2014 MARY NESBITT MD Ot 272.4 10/25/2014 MARY NESBITT MD Ot 401.9 10/25/2014 MARY NESBITT MD Ot 426.3 10/25/2014 MARY NESBITT MD Ot 745.5 10/31/2014 MARY NESBITT MD Ot 272.4 HYPERLIPIDEMIA NEC/NOS 10/31/2014 MARY NESBITT MD Ot 401.9 HYPERTENSION NOS 10/31/2014 MARY NESBITT MD Ot 414.01 CORONARY ATHEROSCLEROSIS OF [place] CORON 10/31/2014 MARY NESBITT MD Ot 426.3 LEFT BB BLOCK NEC 10/31/2014 MARY NESBITT MD Ot 427.89 CARDIAC DYSRHYTHMIAS NEC 10/31/2014 MARY NESBITT MD Ot 745.5 SECUNDUM ATRIAL SEPT DEF 10/31/2014 MARY NESBITT MD Ot 780.2 SYNCOPE AND COLLAPSE 10/31/2014 MARY NESBITT MD Ot V45.82 PERCUTANEOUS TRANSLUM CORON ANGIOPLASTY 10/31/2014 MARY NESBITT MD Ot V58.69 OT MED,LT,CURRENT USE 12/06/2014 MARY NESBITT MD Ot V45.82 12/06/2014 MARY NESBITT MD Ot V57.89 01/09/2015 MARY NESBITT MD Ot V45.82 01/09/2015 MARY NESBITT MD Ot V57.89 01/16/2015 MARY NESBITT MD Ot V45.82 PERCUTANEOUS TRANSLUM CORON ANGIOPLASTY 01/16/2015 MARY NESBITT MD Ot V57.89 REHABILITATION PROC NEC 01/16/2015 MARY NESBITT MD Ot V45.82 01/16/2015 MARY NESBITT MD Ot V57.89 01/19/2015 MARY NESIBTT MD Ot V45.82 01/19/2015 DELICIA SALDANA, MARY J Ot V57.89 01/22/2015 DELICIA SALDANA, MARY J Ot V45.82 01/22/2015 DELICIA SALDANA, TONIAHAR J Ot V57.89 01/22/2015 DELICIA SALDANA, BASHAR J Ot V45.82 01/22/2015 DELICIA SALDANA, TONIAHAR J Ot V57.89 01/30/2015 DELICIA SALDANA, MARY J Ot V45.82 01/30/2015 DELICIA SALDANA, TONIAHAR J Ot V57.89 02/10/2015 DELICIA SALDANA, BASHAR J Ot V45.82 02/10/2015 DELICIA SALDANA, BASHAR J Ot V57.89 03/11/2015 MARY NESBITT MD J Ot Z98.61 03/19/2015 MARY NESBITT MD Ot Z98.61 04/18/2015 MARY NESBITT MD J Ot Z98.61 CORONARY ANGIOPLASTY STATUS 04/18/2015 MARY NESBITT MD Ot E11.9 04/18/2015 MARY NESBITT MD J Ot I10 04/18/2015 MARY NESBITT MD J Ot I25.10 04/18/2015 MARY NESBITT MD J Ot I48.0 04/18/2015 MARY NESBITT MD Ot I50.22 04/18/2015 MARY NESBITT MD Ot Q21.1 04/18/2015 MARY NESBITT MD Ot Z79.01 04/18/2015 MARY NESBITT MD J Ot Z79.4 04/18/2015 MARY NESBITT MD J Ot Z79.899 04/18/2015 MARY NESBITT MD J Ot Z87.891 04/23/2015 MARY NESBITT MD Ot E11.9 04/23/2015 TONIA NESBITT MDHAR J Ot I10 04/23/2015 MARY NESBITT MD J Ot I25.10 04/23/2015 MARY NESBITT MD J Ot I48.0 04/23/2015 MARY NESBITT MD J Ot I50.22 04/23/2015 MARY NESBITT MD J Ot Q21.1 04/23/2015 MARY NESBTIT MD J Ot Z79.01 04/23/2015 MARY NESBITT MD Ot Z79.4 04/23/2015 MARY NESBITT MD Ot Z79.899 04/23/2015 MARY NESBITT MD Ot Z87.891 04/29/2015 MARY NESBITT MD Ot Z98.61 04/29/2015 MARY NESBITT MD Ot Z98.61 06/12/2015 MARY NESBITT MD Ot Z98.61 06/28/2015 MARY NESBITT MD Ot Z48.812 06/28/2015 MARY NESBITT MD Ot Z95.5 07/15/2015 MARY NESBITT MD, Ot Z48.812 ENCNTR FOR SURGICAL AFTCR FOLLOWING SURG 07/15/2015 MARY NESBITT MD Ot Z95.5 PRESENCE OF CORONARY ANGIOPLASTY IMPLANT 07/17/2015 MARY NESBITT MD Ot Z48.812 07/17/2015 MARY NESBITT MD Ot Z95.5 11/19/2015 Ot 401.9 HYPERTENSION NOS 11/19/2015 Ot 426.3 LEFT BB BLOCK NEC 11/19/2015 Ot V72.81 EXAM-PRE- OPERATIVE CARDIOVASCULAR 11/19/2015 MARY NESBITT MD Ot 272.4 HYPERLIPIDEMIA NEC/NOS 11/19/2015 MARY NESBITT MD Ot 401.9 HYPERTENSION NOS 11/19/2015 MARY NESBITT MD Ot 426.3 LEFT BB BLOCK NEC 11/19/2015 MARY NESBITT MD Ot 745.5 SECUNDUM ATRIAL SEPT DEF 11/19/2015 DARYN BENITEZ DO Ot 433.10 CAROTID ARTERY OCCLUSION W O CEREBRAL IN 11/19/2015 MARY NESBITT MD Ot 272.4 HYPERLIPIDEMIA NEC/NOS 11/19/2015 MARY NESBITT MD Ot 401.9 HYPERTENSION NOS 11/19/2015 MARY NESBITT MD Ot 426.3 LEFT BB BLOCK NEC 11/19/2015 MARY NESBITT MD Ot 745.5 SECUNDUM ATRIAL SEPT DEF 11/19/2015 MARY NESBITT MD Ot E11.9 TYPE 2 DIABETES MELLITUS WITHOUT COMPLIC 11/19/2015 MARY NESBITT MD Ot I10 ESSENTIAL (PRIMARY) HYPERTENSION 11/19/2015 MARY NESBITT MD Ot I25.10 ATHSCL HEART DISEASE OF [place] CORONARY 11/19/2015 MARY NESBITT MD Ot I48.0 PAROXYSMAL ATRIAL FIBRILLATION 11/19/2015 MARY NESBITT MD, Ot I50.22 CHRONIC SYSTOLIC (CONGESTIVE) HEART FAIL 11/19/2015 MARY NESBITT MD, Ot Q21.1 ATRIAL SEPTAL DEFECT 11/19/2015 MARY NESBITT MD, Ot Z79.01 ASSISTED (CURRENT) USE OF ANTICOAGULANT 11/19/2015 MRAY NESBITT MD Ot Z79.4 CLEANING CUSTODIAN (CURRENT) USE OF INSULIN 11/19/2015 MARY NESBITT MD, Ot Z79.899 OTHER CLEANING CUSTODIAN (CURRENT) DRUG THERAPY 11/19/2015 MARY NESBITT MD, Ot Z87.891 PERSONAL HISTORY OF NICOTINE DEPENDENCE 11/19/2015 GEE THOMAS Ot I25.10 ATHSCL HEART DISEASE OF [place] CORONARY 11/19/2015 GEE THOMAS Ot I25.10 ATHSCL HEART DISEASE OF [place] CORONARY 11/20/2015 GEE THOMAS Ot E78.2 MIXED HYPERLIPIDEMIA 11/20/2015 GEE THOMAS Ot I10 ESSENTIAL (PRIMARY) HYPERTENSION 11/20/2015 GEE THOMAS Ot I25.10 ATHSCL HEART DISEASE OF [place] CORONARY 11/20/2015 GEE THOMAS Ot I44.7 LEFT BUNDLE-BRANCH BLOCK, UNSPECIFIED 11/21/2015 GEE THOMAS Ot E78.2 MIXED HYPERLIPIDEMIA 11/21/2015 GEE THOMAS Ot I10 ESSENTIAL (PRIMARY) HYPERTENSION 11/21/2015 GEE THOMAS Ot I25.10 ATHSCL HEART DISEASE OF [place] CORONARY 11/21/2015 GEE THOMAS Ot I44.7 LEFT BUNDLE-BRANCH BLOCK, UNSPECIFIED 11/21/2015 GEE THOMAS Ot E78.2 MIXED HYPERLIPIDEMIA 11/21/2015 GEE THOMAS Ot I10 ESSENTIAL (PRIMARY) HYPERTENSION 11/21/2015 GEE THOMAS Ot I25.10 ATHSCL HEART DISEASE OF [place] CORONARY 11/21/2015 JULIA MAXWELL, GEE K Ot I44.7 LEFT BUNDLE-BRANCH BLOCK, UNSPECIFIED 11/28/2015 JULIA MAXWELL, GEE K Ot E78.2 MIXED HYPERLIPIDEMIA 11/28/2015 JULIA MAXWELL, GEE K Ot I10 ESSENTIAL (PRIMARY) HYPERTENSION 11/28/2015 JULIA MAXWELL, GEE K Ot I25.10 ATHSCL HEART DISEASE OF [place] CORONARY 11/28/2015 JULIA MAXWELL, GEE K Ot I44.7 LEFT BUNDLE-BRANCH BLOCK, UNSPECIFIED 12/10/2015 JULIA MAXWELL, GEE K Ot E78.2 MIXED HYPERLIPIDEMIA 12/10/2015 JULIA MAXWELL, GEE K Ot I10 ESSENTIAL (PRIMARY) HYPERTENSION 12/10/2015 JULIA MAXWELL, GEE K Ot I25.10 ATHSCL HEART DISEASE OF [place] CORONARY 12/10/2015 JULIA MAXWELL, GEE K Ot I44.7 LEFT BUNDLE-BRANCH BLOCK, UNSPECIFIED 12/13/2015 JULIA MAXWELL, GEE K Ot E78.2 MIXED HYPERLIPIDEMIA 12/13/2015 JULIA MAXWELL, GEE K Ot I10 ESSENTIAL (PRIMARY) HYPERTENSION 12/13/2015 JULIA MAXWELL, GEE K Ot I25.10 ATHSCL HEART DISEASE OF [place] CORONARY 12/13/2015 JUILA MAXWELL, GEE K Ot I44.7 LEFT BUNDLE-BRANCH BLOCK, UNSPECIFIED 12/19/2015 JULIA MAXWELL, GEE K Ot E78.2 MIXED HYPERLIPIDEMIA 12/19/2015 JULIA MAXWELL, GEE K Ot I10 ESSENTIAL (PRIMARY) HYPERTENSION 12/19/2015 JULIA MAXWELL, GEE K Ot I25.10 ATHSCL HEART DISEASE OF [place] CORONARY 12/19/2015 JULIA MAXWELL, GEE K Ot I44.7 LEFT BUNDLE-BRANCH BLOCK, UNSPECIFIED 12/19/2015 JULIA MAXWELL, GEE K Ot E78.2 MIXED HYPERLIPIDEMIA 12/19/2015 JULIA MAXWELL, GEE K Ot I10 ESSENTIAL (PRIMARY) HYPERTENSION 12/19/2015 JULIA MAXWELL, GEE K Ot I25.10 ATHSCL HEART DISEASE OF [place] CORONARY 12/19/2015 GEE THOMAS Ot I44.7 LEFT BUNDLE-BRANCH BLOCK, UNSPECIFIED 05/22/2016 Ot 401.9 HYPERTENSION NOS 05/22/2016 Ot 426.3 LEFT BB BLOCK NEC 05/22/2016 Ot V72.81 EXAM-PRE- OPERATIVE CARDIOVASCULAR 05/22/2016 MARY NESBITT MD Ot 272.4 HYPERLIPIDEMIA NEC/NOS 05/22/2016 MARY NESBITT MD Ot 401.9 HYPERTENSION NOS 05/22/2016 MARY NESBITT MD Ot 426.3 LEFT BB BLOCK NEC 05/22/2016 MARY NESBITT MD Ot 745.5 SECUNDUM ATRIAL SEPT DEF 05/22/2016 DARYN BENITEZ DO Ot 433.10 CAROTID ARTERY OCCLUSION W O CEREBRAL IN 05/22/2016 MARY NESBITT MD Ot 272.4 HYPERLIPIDEMIA NEC/NOS 05/22/2016 MARY NESBITT MD Ot 401.9 HYPERTENSION NOS 05/22/2016 MARY NESBITT MD Ot 426.3 LEFT BB BLOCK NEC 05/22/2016 MARY NESBITT MD Ot 745.5 SECUNDUM ATRIAL SEPT DEF 05/22/2016 MARY NESBITT MD Ot E11.9 TYPE 2 DIABETES MELLITUS WITHOUT COMPLIC 05/22/2016 MARY NESBITT MD Ot I10 ESSENTIAL (PRIMARY) HYPERTENSION 05/22/2016 MARY NESBITT MD Ot I25.10 ATHSCL HEART DISEASE OF [place] CORONARY 05/22/2016 MARY NESBITT MD Ot I48.0 PAROXYSMAL ATRIAL FIBRILLATION 05/22/2016 MARY NESBITT MD Ot I50.22 CHRONIC SYSTOLIC (CONGESTIVE) HEART FAIL 05/22/2016 MARY NESBITT MD Ot Q21.1 ATRIAL SEPTAL DEFECT 05/22/2016 MARY NESBITT MD Ot Z79.01 ASSISTED (CURRENT) USE OF ANTICOAGULANT 05/22/2016 MARY NESBITT MD Ot Z79.4 CLEANING CUSTODIAN (CURRENT) USE OF INSULIN 05/22/2016 MARY NESBITT MD Ot Z79.899 OTHER CLEANING CUSTODIAN (CURRENT) DRUG THERAPY 05/22/2016 MARY NESBITT MD, Ot Z87.891 PERSONAL HISTORY OF NICOTINE DEPENDENCE 05/22/2016 GEE THOMAS Ot E78.2 MIXED HYPERLIPIDEMIA 05/22/2016 GEE THOMAS Ot I10 ESSENTIAL (PRIMARY) HYPERTENSION 05/22/2016 GEE THOMAS Ot I25.10 ATHSCL HEART DISEASE OF [place] CORONARY 05/22/2016 GEE THOMAS Ot I44.7 LEFT BUNDLE-BRANCH BLOCK, UNSPECIFIED 05/22/2016 GEE THOMAS Ot E78.2 MIXED HYPERLIPIDEMIA 05/22/2016 GEE THOMAS Ot I10 ESSENTIAL (PRIMARY) HYPERTENSION 05/22/2016 GEE THOMAS Ot I25.10 ATHSCL HEART DISEASE OF [place] CORONARY 05/22/2016 GEE THOMAS Ot I44.7 LEFT BUNDLE-BRANCH BLOCK, UNSPECIFIED 05/22/2016 MARY NESBITT MD Ot I65.23 OCCLUSION AND STENOSIS OF BILATERAL [place] 06/15/2016 MARY NESBITT MD, Ot I65.23 OCCLUSION AND STENOSIS OF [place]IL[place]AL [place] 06/18/2016 MARY NESBITT MD, Ot I65.23 OCCLUSION AND STENOSIS OF BIL[place]AL [place] 12/15/2017 Jana Bourne 455.9 RESIDUAL HEMORRHOIDAL SKIN TAGS 12/15/2017 Jana Bourne 569.0 ANAL AND RECTAL POLYP 12/15/2017 Jana Bourne A 569.3 HEMORRHAGE OF RECTUM AND ANUS 12/15/2017 Jana Bourne K62.1 RECTAL POLYP 12/15/2017 Jana Bourne A K62.5 HEMORRHAGE OF ANUS AND RECTUM 12/15/2017 Jana Bourne K64.4 RESIDUAL HEMORRHOIDAL SKIN TAGS 12/15/2017 Jana Bourne V16.0 FAMILY HISTORY OF MALIGNANT NEOPLASM OF GASTROINTESTINAL TRACT 12/15/2017 Jana Bourne Z80.0 FAMILY HISTORY OF MALIGNANT NEOPLASM OF DIGESTIVE ORGANS 05/04/2018 MARY NESBITT MD, Ot E78.5 HYPERLIPIDEMIA, UNSPECIFIED 05/04/2018 MARY NESBITT MD Ot I08.3 COMB RHEUMATIC DISORD OF [place], AORTIC 05/04/2018 MARY NESBITT MD Ot I10 ESSENTIAL (PRIMARY) HYPERTENSION 05/04/2018 MARY NESBITT MD Ot I25.10 ATHSCL HEART DISEASE OF [place] CORONARY 05/04/2018 MARY NESBITT MD Ot I44.7 LEFT BUNDLE-BRANCH BLOCK, UNSPECIFIED 05/04/2018 MARY NESBITT MD, Ot I48.91 UNSPECIFIED ATRIAL FIBRILLATION 05/06/2018 MARY NESBITT MD Ot E78.5 HYPERLIPIDEMIA, UNSPECIFIED 05/06/2018 MARY NESBITT MD Ot I10 ESSENTIAL (PRIMARY) HYPERTENSION 05/06/2018 MARY NESBITT MD, Ot I25.10 ATHSCL HEART DISEASE OF [place] CORONARY 05/06/2018 MARY NESBITT MD, Ot I44.7 LEFT BUNDLE-BRANCH BLOCK, UNSPECIFIED 05/06/2018 MARY NESBITT MD, Ot I48.91 UNSPECIFIED ATRIAL FIBRILLATION Procedures There is no data. Results Test Result Range [id number] - 05/22/16 07:46 Serum or plasma urea nitrogen measurement (mass/volume) 24 mg/dL 7-18 Serum or plasma creatinine measurement (mass/volume) 1.11 mg/dL 0.60-1.30 Serum or plasma urea nitrogen/creatinine mass ratio 22 NRG Serum or plasma creatinine measurement with calculation of estimated glomerular filtration rate 48 NRG BMP - 12/06/17 13:54 Anion Gap 17 6-14 BUN 22 mg/dL 5-25 Calcium 10.2 mg/dL 8.3-10.4 Chloride 98 mmol/L 95-114 CO2 27 mEq/L 22-33 Creat 1.17 mg/dL 0.50-1.50 eGFR 45 mL/min/1.73m2 >59 Glucose 107 mg/dL 70-110 Osmo 289 280-295 Potassium 3.5 mmol/L 3.5-5.3 Sodium 138 mmol/L 134-148 Encounters ACCT No. Visit Date/Time Discharge Status Pt. Type Provider Facility Loc./Unit Complaint [id number] 05/28/2015 15:10:35 05/28/2015 23:59:59 [facility] Outpatient GEMINI KAY [id number] 05/22/2015 11:23:38 05/22/2015 23:59:59 [facility] Outpatient GEMINI KAY [id number] 03/16/2018 13:49:15 Document Registration [id number] 03/03/2018 08:05:24 Document Registration [id number] 03/03/2018 08:00:26 Document Registration [id number] 10/26/2017 08:11:13 Document Registration [id number] 06/24/2017 07:43:06 Document Registration [id number] 02/24/2017 07:54:55 Document Registration [id number] 02/18/2017 16:44:00 Document Registration [id number] 02/18/2017 16:01:13 Document Registration [id number] 12/16/2016 11:23:53 Document Registration [id number] 12/15/2017 06:30:00 12/15/2017 08:35:00 DIS Outpatient Jana Bourne [id number] 12/06/2017 12:54:00 12/06/2017 23:59:00 DIS Outpatient Jana Bourne [id number] 12/08/2017 14:21:56 Document Registration [id number] 05/04/2018 06:58:00 05/04/2018 23:59:59 CLS Outpatient MARY NESBITT MD [facility] CARD CAD [id number] 05/03/2018 09:51:00 05/03/2018 23:59:59 CLS Outpatient MARY NESBITT MD [facility] CARD CAD [id number] 05/22/2016 07:37:00 05/22/2016 23:59:59 CLS Outpatient MARY NESBITT MD [facility] RAD OCCLUSION AND STENOSIS OF BIL[place] CAROTID ARTERIES [id number] 11/20/2015 08:19:00 11/20/2015 23:59:59 CLS Outpatient GEE THOMAS [facility] CARD CAD,HTN,HLP, LBBB [id number] 11/19/2015 09:45:00 11/19/2015 23:59:59 CLS Outpatient GEE THOMAS [facility] CARD CAD,HTN,HLP, LBBB [id number] 07/15/2015 11:58:00 07/15/2015 23:59:59 CLS Outpatient MARY NESBITT MD [facility] CR STENT [id number] 02/13/2015 11:46:00 04/18/2015 00:01:00 DIS Outpatient MARY NESBITT MD [facility] CR STENT [id number] 03/22/2015 09:31:00 03/22/2015 23:59:59 CLS Outpatient MARY NESBITT MD [facility] CATH AFIB, SYNCOPE [id number] 01/11/2015 13:16:00 01/16/2015 00:01:00 DIS Outpatient MARY NESBITT MD [facility] CR STENT [id number] 10/31/2014 06:43:00 10/31/2014 19:43:00 DIS Outpatient MARY NESBITT MD [facility] CATH CAD HTN HLE LBBB [id number] 10/03/2014 12:24:00 10/04/2014 10:25:00 DIS Outpatient GEE THOMAS [facility] CATH ABNORMAL STRESS, SYNCOPE, LBBB FATIGUE [id number] 10/01/2014 10:00:00 10/01/2014 23:59:59 CLS Preadmit GEE THOMAS [facility] CARD HTN,HLP [id number] 09/26/2014 10:46:00 09/26/2014 23:59:59 CLS Outpatient MARY NESBITT MD [facility] CARD HTN,HLP,LBBB [id number] 06/28/2013 07:56:00 06/28/2013 23:59:59 CLS Outpatient DARYN BENITEZ DO [facility] RAD CAROTID ARTERY STENOSIS [id number] 06/28/2013 07:49:00 06/28/2013 23:59:59 CLS Outpatient MARY NESBITT MD [facility] CARD HTN,HLP,PFO [id number] 05/18/2018 09:00:00 PEN Preadmit MARY NESBITT MD [facility] CATH ABN STRESS TEST,CAD,HTN [id number] 01/05/2012 10:49:00 Document Registration [id number] 01/28/2015 13:25:22 ACT Document Registration
[2018-05-18] MEDS ORDERED: NS IV 1000 ML 1,000 ML IV SCH (07:00)
[2018-05-18 07:24] LABS: BILIRUBIN,URINE NEGATIVE (NEGATIVE); CLARITY,URINE SLIGHTLY CLOUDY; COLOR,URINE YELLOW; GLUCOSE, URINE (UA) NEGATIVE (NEGATIVE); HEMOGLOBIN 13.9 G/DL (11.5-16.0); KETONES,URINE NEGATIVE (NEGATIVE); LEUKOCYTE ESTERASE ,URINE 3+ (NEGATIVE); MEAN PLATELET VOLUME 9.2 FL (7.4-10.4); NITRITE,URINE POSITIVE (NEGATIVE); PH,URINE 6 (5-9); PROTEIN,URINE 1+ (NEGATIVE); RED CELL DISTRIBUTION WIDTH 12.9 % (10.0-14.5); UROBILINOGEN,URINE NORMAL (NORMAL)
[2018-05-18] MEDS ORDERED: ATOR40TA70 PO (07:31)
[2018-05-18] MEDS ORDERED: LOSA1TAB23 PO (07:31)
[2018-05-18] MEDS ORDERED: LEVO50TA6 PO (07:31)
[2018-05-18] MEDS ORDERED: DILT240C53 PO (07:31)
[2018-05-18] MEDS ORDERED: ASPI-983 PO (07:31)
[2018-05-18] MEDS ORDERED: DOCU-238 PO (07:31)
[2018-05-18] MEDS ORDERED: OMEG-154 PO (07:31)
[2018-05-18] MEDS ORDERED: METO-387 PO (07:31)
[2018-05-18 07:34] LABS: PROTHROMBIN TIME PATIENT 13.3 SEC (12.2-14.7)
[2018-05-18 07:41] LABS: ALBUMIN 4.5 GM/DL (3.2-4.5); BILIRUBIN,TOTAL 0.7 MG/DL (0.1-1.0); CALCIUM 9.9 MG/DL (8.5-10.1); CREATININE SERUM 1.07 MG/DL (0.60-1.30); POTASSIUM 3.1 MMOL/L (3.6-5.0); TOTAL PROTEIN 7.8 GM/DL (6.4-8.2)
[2018-05-18 07:42] LABS: BACTERIA,URINE LARGE /HPF; RBC,URINE RARE /HPF; WBC,URINE >100 /HPF
[2018-05-18] MEDS ORDERED: POTASSIUM CL 10MEQ/50ML IVPB 100 ML IV ONE (08:04)
--- NOTE | 2018-05-18 08:11 | Cardiac Procedure Note-CS/ASA ---
Pre-Procedure Note Pre-Op Procedure Note H&P Reviewed The H&P was reviewed, patient examined and no changes noted. Date H&P Reviewed: May 18, 2018 Time H&P Reviewed: 08:11 Conscious Sedation Pre-Proced Time 08:11 ASA Score 3 For ASA 3 and 4: Consider anesthesia and medical clearance. Also, for patients with a history of failed moderate sedation consider anesthesia. Airway Lungs Heart ASA score ASA 1: a normal healthy patient ASA 2: a patient with a mild systemic disease (mid diabetes, controlled hypertension, obesity x ASA 3: a patient with a severe systemic disease that limits activity (angina , COPD, prior Myocardial infarction) ASA 4: a patient with an incapacitating disease that is a constant threat to life (CHF, renal failure) ASA 5: a moribund patient not expected to survive 24 hrs. (ruptured aneurysm) ASA 6: a declared brain patient whose organs are being harvested. For emergent operations, add the letter E after the classification Mallampati Classification Grade 3 Sedation Plan Analgesia, Amnesia, Plan communicated to team members, Discussed options with patient/fam, Discussed risks with patient/fam The patient is an appropriate candidate to undergo the planned procedure, sedation, and anesthesia. The patient immediately re-assessed prior to indication. MARY NESBITT MD May 18, 2018 08:11
--- NOTE | 2018-05-18 08:12 | Diagnostic Imaging Report ---
INDICATION: Cough and heart disease. Comparison is made with prior examination from 10/31/14. FINDINGS: There is mild cardiomegaly. Mediastinum is unremarkable. Lungs clear. There is no pleural effusion or pneumothorax. IMPRESSION: No acute cardiopulmonary abnormality Mild cardiomegaly. Dictated by: Dictated on workstation # [id number]
[2018-05-18] MEDS: POTASSIUM CL 10MEQ/50ML IVPB 50 ML IV SCH ×2 (08:14→09:26)
[2018-05-18] MEDS ORDERED: fentaNYL INJECTION 100 MCG/2 ML AMP ONE (09:00)
[2018-05-18] MEDS ORDERED: MIDAZOLAM 5 MG/5 ML (VERSED) VIAL ONE (09:00)
--- NOTE | 2018-05-18 09:58 | Cardiac Cath Report ---
Cardiac Cath Report Physician (s)/Employment Counselor (s) Physician MARY NESBITT MD Pre-Procedure Diagnosis Pre-Procedure Diagnosis: coronary artery disease Post-Procedure Note Procedure Start Date: May 18, 2018 Name of Procedure: left heart catheterization Findings/Procedure Note PROCEDURE NOTE: 77 years old lady with history of coronary artery disease, had a stent to the right coronary artery, underwent stress test which was abnormal with mild abnormality in the anterior wall. Scheduled for left heart catheterization possible PTCA After explaining the procedure to the patient, all pros and cons were explained , all questions were answered. The patient signed the consent and then she was placed on the cardiac catheterization laboratory. Groin was prepped SL fashion local anesthesia was used. Sheath placed in the right femoral artery. Isma right and left catheter were used to access the coronary system. Pigtail was used to access the left ventricular cavity. Left ventriculogram Was not done, pressure was measured At the end of the procedure the sheath was removed. Closure device was used FINDINGS: Hemodynamics LV 137/11, end-diastolic pressure of 11 Aorta 142/52 mean of 82 ANATOMY: Left Main is free of obstructive disease Left Anterior Descending has mild to moderate disease at the mid to distal portion, and obstructive disease Left Circumflex has mild disease nonobstructive disease Right Coronory Artery is dominant with patent stent in the right coronary artery LV Gram was not done pressure was measured CONCLUSION: 1. Patent stent in the right coronary artery with no obstructive disease 2. Mild to moderate disease at the mid to distal LAD nonobstructive disease 3. Normal left ventricular end-diastolic pressure DISCUSSION AND RECOMMENDATION: medical therapy for, did not intervention is needed Anesthesia Type: Conscious Sedation Estimated blood loss (mL): 15 ml Contrast Amount: 43 ml Total Radiation Dose: 186 mGy Post-Procedure Diagnosis Post-operative diagnosis: Coronary artery disease Chest pain Hypertension Hyperlipidemia MARY NESBITT MD May 18, 2018 09:58
--- NOTE | 2018-05-18 09:59 | Discharge Inst-Post CATH ---
Discharge Inst-CATH/EP Post Cardiac Cath/EP D/C Inst Follow Up/Plan Appointment with Dr. Avery's office in 4 weeks CARDIAC CATH DISCHARGE INSTRUCTIONS *Hold Metformin for 48 hours post heart cath. ACTIVITY * Go Home directly and rest. * Limit activity of the leg (or wrist if it was used) for 7 days including aerobics, swimming, jogging, bicycling, etc. * Restrict stair-climbing for 7 days if possible, if not, climb up with your non -cath leg, then bring together on the same step. * Avoid lifting, pushing, pulling or excessive movement of the affected extremity for 7 days. * Customary sexual activity may be resumed after 2 days-use caution not to use a position that strains or causes pain to the affected extremity. * No driving for 24 hours. * NO SMOKING. * Avoid straining for bowel movements for 7 days. * Gentle walking on level ground is allowed. * Returning to work will depend on the type of procedure and the results. Your doctor will discuss this with you. CALL YOUR DOCTOR FOR ANY OF THE FOLLOWING: *If bleeding from the puncture site occurs- Apply gentle pressure to site with clean cloth and call your doctor or EMS. * If a knot or lump forms under the skin, increases in size, or causes pain. * If bruising appears to be worsening or moving further down your leg instead of disappearing. * Temperature above 101 F. CARE OF YOUR GROIN INCISION; * Bruising or purple discoloration of the skin near the puncture site is common. * You may shower only, no bathtub bathing for 5 days. Be careful to avoid slipping as your leg may feel stiff. * If a closure device was used on your femoral artery, please see the attached guide regarding care of the device and your leg. * Leave the dressing on, until removed by office staff. CARE OF YOUR WRIST INCISION; * Bruising or purple discoloration of the skin near the puncture site is common. * You may shower. * DO NOT submerge wrist. * Leave dressing on, until removed by office staff.. MARY AVERY MD May 18, 2018 09:59
== END 2018-05-18 14:45 | disposition home or self-care (01) ==
LOC: CATH 06:43 → SDC 10:12 → CATH 14:45
PROVIDERS: ATTEND Internal Medicine Cardiovascular Disease
DX: R07.9 Chest pain, unspecified (principal); I25.10 Atherosclerotic heart disease of native coronary artery without angina pectoris; I10 Essential (primary) hypertension; E78.5 Hyperlipidemia, unspecified; I48.0 Paroxysmal atrial fibrillation; I44.7 Left bundle-branch block, unspecified; I65.29 Occlusion and stenosis of unspecified carotid artery; I34.0 Nonrheumatic mitral (valve) insufficiency; Z87.891 Personal history of nicotine dependence; Z79.899 Other long term (current) drug therapy; R00.1 Bradycardia, unspecified; Z79.82 Long term (current) use of aspirin; R55 Syncope and collapse; Z82.49 Family history of ischemic heart disease and other diseases of the circulatory system; Z11.2 Encounter for screening for other bacterial diseases
CPT/HCPCS: 36415; 71045; 80053; 80061; 81000; 85027; 85610; 85730; 87077; 87081; 87088; 93458

== ENCOUNTER → 2020-09-18 | Outpatient (CLI) | payer MEDICARE ==
[~2020-09-18] MED LIST changes: +ASPI-1238 PO; +ATOR40TA70 PO; +DILT240C53 PO; +DOCU-241 PO; -HEParin (CATH LAB) 2,000 ML IV ONE; +LEVO50TA6 PO; -LIDOCAINE 1% INJ 20 ML 20 ML VIAL ONE; +LOSA1TAB23 PO; -NS IV 1000 ML 1,000 ML ONE; +OMEG-154 PO; +REGADENOSON 0.4 MG/5 ML SYR (LEXISCAN) IV ONE
[2020-09-18] MEDS: CATHETER FLUSH 10 ML SYR IV PRN ×2 (07:50→09:15)
[2020-09-18 09:14] VITALS: BP 193/90
--- NOTE | 2020-09-18 13:30 | Cardiology Stress Test Report ---
Stress Test Report Date of Procedure/Referring: Date of Procedure: Sep 18, 2020 PCP Mary Avery MD Admitting Physician Viola Oliveira DO Indications: Atrial fibrillation Baseline Blood Pressure: Blood Pressure Systolic: 193 Blood Pressure Diastolic: 90 Baseline Vitals Vital Signs Date Time Temp Pulse Resp B/P (MAP) Pulse Ox O2 Delivery O2 Flow Rate FiO2 09/18/20 09:14 64 14 193/90 (124) 97 Room Air Baseline EKG: Baseline EKG: Left bundle branch block Summary After explaining the procedure to the patient, she signed a consent and then brought to the stress nuclear laboratory. Patient received 0.4 mg Lexiscan for stress test, ECG, heart rate and blood pressure were monitored continuously. Resting and stress dose of radio tracer were injected, imaging was acquired and reviewed in short axis, horizontal long axis and vertical long axis views. TID: 0.89 SSS: 8 SDS: 3 EF: 52 1. Patient tolerated Lexiscan well 2. Baseline atrial fibrillation with left bundle branch block persisted during test 3. Reversible ischemia involving the apex and inferoapical segment and mid inferior wall 4. Hypokinesia at the apex and inferior wall, EF 52%, gated images are unrelia ble due to underlying atrial fibrillation MARY AVERY MD Sep 18, 2020 13:30
== END ==
LOC: CARD 07:45
PROVIDERS: ATTEND Internal Medicine Cardiovascular Disease
DX: I48.91 Unspecified atrial fibrillation (principal)
CPT/HCPCS: 78452; 93017; A9502

== ENCOUNTER → 2021-05-06 | Outpatient (CLI) | payer MEDICARE ==
[~2021-05-06] MED LIST changes: -DOCU-241 PO; +DOCU-26 PO; -REGADENOSON 0.4 MG/5 ML SYR (LEXISCAN) IV ONE
== END ==
LOC: CARD 09:00
PROVIDERS: ATTEND Physician Assistant
DX: I11.9 Hypertensive heart disease without heart failure (principal); I08.0 Rheumatic disorders of both mitral and aortic valves
CPT/HCPCS: 93306

== ENCOUNTER → 2021-11-05 | Outpatient (CLI) | payer MEDICARE ==
[~2021-11-05] VITALS: Ht 157 cm; Wt 55.0 kg
[~2021-11-05] MED LIST changes: +CATHETER FLUSH 10 ML SYR IVP PRN; +REGADENOSON 0.4 MG/5 ML SYR (LEXISCAN) IV ONE
[2021-11-05 09:06] VITALS: BP 196/81
--- NOTE | 2021-11-06 11:15 | Cardiology Stress Test Report ---
Stress Test Report Date of Procedure/Referring: Date of Procedure: Nov 05, 2021 PCP Viola Oliveira DO Admitting Physician Admitting Physician: Attending Physician: Gerry Avery MD Indications: LBBB Baseline Blood Pressure: Blood Pressure Systolic: 196 Blood Pressure Diastolic: 81 Baseline Vitals Vital Signs Date Time Temp Pulse Resp B/P (MAP) Pulse Ox O2 Delivery O2 Flow Rate FiO2 11/05/21 09:06 55 196/81 (119) Baseline EKG: Baseline EKG: LBBB Summary After explaining the procedure to the patient, she signed a consent and then brought to the stress nuclear laboratory. Patient received 0.4 mg Lexiscan for stress test, ECG, heart rate and blood pressure were monitored continuously. Resting and stress dose of radio tracer were injected, imaging was acquired and reviewed in short axis, horizontal long axis and vertical long axis views. TID: 1.15 SSS: 12 SDS: 5 EF: 52 1. Patient tolerated Lexiscan well 2. Baseline left bundle branch block persisted during test 3. Baseline HTN persisted during test 4. Ischemia involving the anterior apical segment and jimy septum 5. Normal LV size, mild hypokinesia in the jimy septum, EF 52% Copy Copies To 1: VIOLA OLIVEIRA BASHAR J MD Nov 06, 2021 11:15
== END ==
LOC: CARD 08:15
PROVIDERS: ATTEND Internal Medicine Cardiovascular Disease
DX: I44.7 Left bundle-branch block, unspecified (principal); I10 Essential (primary) hypertension; I25.10 Atherosclerotic heart disease of native coronary artery without angina pectoris
CPT/HCPCS: 78452; 93017; A9502

== ENCOUNTER 2021-12-03 09:00 | Day surgery (SDC) | payer MEDICARE ==
[~2021-12-03] VITALS: Ht 157.5 cm; Wt 58.2 kg
[2021-12-03] VITALS (12 sets, daily range): BP systolic 112–189; BP diastolic 41–102
[2021-12-03 07:35] LABS: BILIRUBIN,URINE NEGATIVE (NEGATIVE); CLARITY,URINE CLEAR; COLOR,URINE YELLOW; GLUCOSE, URINE (UA) NEGATIVE (NEGATIVE); KETONES,URINE NEGATIVE (NEGATIVE); LEUKOCYTE ESTERASE ,URINE 3+ (NEGATIVE); NITRITE,URINE POSITIVE (NEGATIVE); PH,URINE 6.5 (5-9); PROTEIN,URINE NEGATIVE (NEGATIVE)
[2021-12-03 07:39] LABS: HEMATOCRIT 42 % (35-52); HEMOGLOBIN 14.4 g/dL (11.5-16.0); MEAN CORPUSCULAR HEMOGLOBIN 32 pg (25-34); MEAN CORPUSCULAR HGB CONC 34 g/dL (32-36); MEAN CORPUSCULAR VOLUME 93 fL (80-99); MEAN PLATELET VOLUME 8.8 fL (9.0-12.2); PLATELET COUNT 317 10^3/uL (130-400); WHITE BLOOD COUNT 9.4 10^3/uL (4.3-11.0)
[2021-12-03 07:49] LABS: INR 0.9 (0.8-1.4)
[2021-12-03 07:55] LABS: BACTERIA,URINE LARGE /HPF; RBC,URINE 0-2 /HPF; WBC,URINE TNTC /HPF
[2021-12-03 07:59] LABS: ALANINE AMINOTRANSFERASE 20 U/L (0-55); ALBUMIN 4.6 GM/DL (3.2-4.5); ALKALINE PHOSPHATASE 66 U/L (40-136); BILIRUBIN,TOTAL 0.6 MG/DL (0.1-1.0); BUN/CREATININE RATIO 23; CALCIUM 9.9 MG/DL (8.5-10.1); CARBON DIOXIDE 24 MMOL/L (21-32); CHLORIDE 100 MMOL/L (98-107); CHOLESTEROL 185 MG/DL (< 200); CREATININE SERUM 1.15 MG/DL (0.60-1.30); GFR ESTIMATED 48; GLUCOSE 139 MG/DL (70-105); HDL CHOLESTEROL 46 MG/DL (40-60); POTASSIUM 3.3 MMOL/L (3.6-5.0); SODIUM 139 MMOL/L (135-145); TOTAL PROTEIN 7.8 GM/DL (6.4-8.2); TRIGLYCERIDES 143 MG/DL (<150); VLDL CHOLESTEROL 29 MG/DL (5-40)
[~2021-12-03 09:00] MED LIST changes: +ALEN70TA80 PO; +CALC-140 PO; -CATHETER FLUSH 10 ML SYR IVP PRN; +DICL100G13 TP; +DILT240C91 PO; +FAMO20TA3 PO; +HEParin (CATH LAB) 2,000 ML IV ONE; +LIDOCAINE 1% INJ 20 ML VIAL ONE; +MULT-1136 PO; +NS IV 1000 ML 1,000 ML IV SCH; +NS IV 1000 ML 1,000 ML ONE; -REGADENOSON 0.4 MG/5 ML SYR (LEXISCAN) IV ONE
--- NOTE | 2021-12-03 09:07 | Diagnostic Imaging Report ---
EXAM: CHEST 1 VIEW, AP/PA ONLY INDICATION: Coronary artery disease. COMPARISON: 05/18/2018. FINDINGS: Normal heart size and central pulmonary vascularity. No focal pulmonary opacity. No pleural effusion or pneumothorax. No acute osseous findings. No significant change. IMPRESSION: No acute cardiopulmonary findings. Dictated by: Dictated on workstation # [id number]
[2021-12-03] MEDS ORDERED: NITRO DRIP 25000 MCG/D5W 250 ML IV ONE (09:12)
[2021-12-03] MEDS ORDERED: HEParin 1000 UNIT/ML (10ML VIAL) FOR BOLUS ONE (09:12)
[2021-12-03] MEDS ORDERED: MIDAZOLAM 5 MG/5 ML (VERSED) VIAL ONE (09:12)
[2021-12-03] MEDS ORDERED: VERAPAMIL 5 MG/2 ML (CALAN) VIAL IV ONE (09:12)
[2021-12-03] MEDS ORDERED: fentaNYL INJ 100 MCG/2 ML AMP ONE (09:12)
--- NOTE | 2021-12-03 09:40 | Cardiac Procedure Note-CS/ASA ---
Pre-Procedure Note Pre-Op Procedure Note Date of Available H&P: Nov 07, 2021 Date H&P Reviewed: Dec 03, 2021 Time H&P Reviewed: 09:00 History & Physical: H&P Reviewed, Patient Examed, No changes noted Pre-Operative Diagnosis: coronary artery disease Conscious Sedation Pre-Proced Time 09:40 ASA Score 3 For ASA 3 and 4: Consider anesthesia and medical clearance. Also, for patients with a history of failed moderate sedation consider anesthesia. Airway Lungs Heart ASA score ASA 1: a normal healthy patient ASA 2: a patient with a mild systemic disease (mid diabetes, controlled hypertension, obesity x ASA 3: a patient with a severe systemic disease that limits activity (angina, COPD, prior Myocardial infarction) ASA 4: a patient with an incapacitating disease that is a constant threat to life (CHF, renal failure) ASA 5: a moribund patient not expected to survive 24 hrs. (ruptured aneurysm) ASA 6: a declared brain- patient whose organs are being harvested. For emergent operations, add the letter E after the classification Mallampati Classification Grade 3 Sedation Plan Analgesia, Amnesia, Plan communicated to team members, Discussed options with patient/fam, Discussed risks with patient/fam The patient is an appropriate candidate to undergo the planned procedure, sedation, and anesthesia. The patient immediately re-assessed prior to indication. MARY NESBITT MD Dec 03, 2021 09:40
[2021-12-03] MEDS ORDERED: ATROPINE INJECTION 1 MG/10 ML SYR (ABBOTT) ONE (10:07)
[2021-12-03] MEDS ORDERED: ASPIRIN 325 MG (5 GR) TABLET ONE (10:18)
[2021-12-03] MEDS ORDERED: CLOPIDOGREL 300 MG (PLAVIX) TABLET PO ONE (10:18)
[2021-12-03] MEDS ORDERED: NON-FORMULARY MEDICATION 1 EA EA (Alendronate Sodium 70 MG) PO SCH (10:30)
[2021-12-03] MEDS ORDERED: DOCUSATE SODIUM 100 MG (COLACE) CAP PO PRN (10:30)
--- NOTE | 2021-12-03 10:34 | Cardiac Cath Report ---
Cardiac Cath Report Physician (s)/Spent Grain Dryer (s) Physician MARY NESBITT MD Pre-Procedure Diagnosis Pre-Procedure Diagnosis: coronary artery disease Post-Procedure Note Procedure Start Date: Dec 03, 2021 Name of Procedure: Left heart catheterization Stenting to the right coronary artery Findings/Procedure Note PROCEDURE NOTE: 81-year-old lady with history of coronary artery disease, had an abnormal stress test, scheduled for cardiac catheterization possible PTCA. After explaining the procedure to the patient, all pros and cons were explained, all questions were answered. The patient signed the consent and then she was placed on the cardiac catheterization laboratory. Groin was prepped SL fashion local anesthesia was used. Sheath placed in the right radial artery, I had difficulty advancing the J-wire through the brachial artery I used baby J-wire and advanced Hudson catheter engage the left and right coronary system angiogram was done. Patient has severe stenosis in the distal right coronary artery, I exchanged the catheter over a long J-wire and used Isma right guide. Advanced into the left ventricular cavity and pressure was measured. Patient received a total of 6000 units of heparin, I advanced a BMW wire with difficulty and parked it distally. I was unable to advance a balloon through the mid right coronary artery and distal area due to significant tortuosity and lack of support. I removed all equipment and exchanged over a long J-wire and used AL-1 and engaged the right coronary artery, BMW wire was advanced then I did predilatation with a trek 3.0 balloon then I advanced a azael point 3 x 23 mm stent expanded to 3.2 mm, it was overlapping with the mid right coronary artery stent, did another inflation over the overlap area. Angiogram showed excellent results. At the end of the procedure the sheath was removed. Vascular band was used FINDINGS: Hemodynamics LV 132/13, end-diastolic pressure of 13 Aorta 127/46 mean of 72 ANATOMY: Left Main is small artery with 40% ostial stenosis nonobstructive disease Left Anterior Descending is small artery tortuous artery with 50% mid to distal stenosis with myocardial bridging nonobstructive disease Left Circumflex is moderate in size nondominant artery with no obstructive disease Right Coronary Artery is large dominant artery with severe stenosis in the distal right coronary artery, the stent in the mid right coronary artery is patent, successful complex intervention with balloon angioplasty then deployment of azael point stent 3 x 23 mm expanded to 3.2 mm overlapping with old stent extending to the bifurcation with excellent results. LV Gram was not done, pressure was measured CONCLUSION: 1. Severe stenosis in the distal right coronary artery successful complex intervention with deployment of azael point stent 3 x 23 mm overlapping with the old mid right coronary artery stent and extending to the bifurcation, expanded to 3.2 mm with excellent results. 2. 40% ostial left main coronary artery stenosis, 50% mid to distal LAD stenosis small artery tortuous artery nonobstructive disease 3. Normal left ventricular end-diastolic pressure DISCUSSION AND RECOMMENDATION: Patient received aspirin and Plavix, she has paroxysmal atrial fibrillation, had significant irregular heart rhythm during the procedure. I will evaluate EKG and monitor Anesthesia Type: Conscious Sedation Estimated blood loss (mL): 30 ml Contrast Amount: 70 ml Total Radiation Dose: 707 mGy Post-Procedure Diagnosis Post-operative diagnosis: Coronary artery disease Paroxysmal atrial fibrillation Hypertension Hyperlipidemia MARY NESBITT MD Dec 03, 2021 10:34
[2021-12-03] MEDS: NS IV 1000 ML 1,000 ML IV SCH ×2 (13:20→20:51)
[2021-12-03] MEDS ORDERED: NON-FORMULARY MEDICATION 1 EA EA (Multivitamin 1 EACH) PO SCH (21:00)
[2021-12-03] MEDS ORDERED: ASPIRIN E.C. 81 MG (ECOTRIN) TAB PO SCH (21:00)
[2021-12-03] MEDS: CIPROFLOXACIN 500 MG (CIPRO) TABLET PO SCH (21:42)
[2021-12-04 03:38] VITALS: BP 115/52
[2021-12-04] MEDS: NS IV 1000 ML 1,000 ML IV SCH (05:32)
[2021-12-04] MEDS ORDERED: CIPR500T5 PO (05:48)
[2021-12-04] MEDS ORDERED: CLOP75TA28 PO (05:48)
--- NOTE | 2021-12-04 05:48 | Discharge Inst-Post CATH ---
Discharge Inst-CATH/EP Problems Reviewed?: Yes Post Cardiac Cath/EP D/C Inst Follow Up/Plan Appointment with Dr Avery in 2-4 weeks <b>CARDIAC CATH/EP PROCEDURE DISCHARGE INSTRUCTIONS</b> ACTIVITY * Go Home directly and rest. * Limit activity of the leg (or wrist if it was used) for 7 days including aerobics, swimming, jogging, bicycling, etc. * Restrict stair-climbing for 7 days if possible, if not, climb up with your non-cath leg, then bring together on the same step. * Avoid lifting, pushing, pulling or excessive movement of the affected extremity for 7 days. * Customary sexual activity may be resumed after 2 days-use caution not to use a position that strains or causes pain to the affected extremity. * No driving for 24 hours. * NO SMOKING. * Avoid straining for bowel movements for 7 days. * Gentle walking on level ground is allowed. * Returning to work will depend on the type of procedure and the results. Your doctor will discuss this with you. CALL YOUR DOCTOR FOR ANY OF THE FOLLOWING: *If bleeding from the puncture site occurs- Apply gentle pressure to site with clean cloth and call your doctor or EMS. * If a knot or lump forms under the skin, increases in size, or causes pain. * If bruising appears to be worsening or moving further down your leg instead of disappearing. * Temperature above 101 F. CARE OF YOUR GROIN INCISION; * Bruising or purple discoloration of the skin near the puncture site is common. * You may shower only, no bathtub bathing for 5 days. Be careful to avoid slipping as your leg may feel stiff. * If a closure device was used on your femoral artery, please see the attached guide regarding care of the device and your leg. * Leave dressing on FOR 24 hours. CARE OF YOUR WRIST INCISION; * Bruising or purple discoloration of the skin near the puncture site is common. * You may shower. * DO NOT submerge wrist. * Leave dressing on FOR 24 hours. MARY AVERY MD Dec 04, 2021 05:48
[2021-12-04 06:04] LABS: HEMATOCRIT 35 % (35-52); HEMOGLOBIN 12.2 g/dL (11.5-16.0); MEAN CORPUSCULAR HEMOGLOBIN 32 pg (25-34); MEAN CORPUSCULAR HGB CONC 35 g/dL (32-36); MEAN CORPUSCULAR VOLUME 92 fL (80-99); MEAN PLATELET VOLUME 9.2 fL (9.0-12.2); PLATELET COUNT 264 10^3/uL (130-400); WHITE BLOOD COUNT 10.9 10^3/uL (4.3-11.0)
[2021-12-04 06:15] LABS: POTASSIUM 3.3 MMOL/L (3.6-5.0)
[2021-12-04 06:16] LABS: CALCIUM 8.7 MG/DL (8.5-10.1)
[2021-12-04 06:20] LABS: CREATININE SERUM 0.81 MG/DL (0.60-1.30)
[2021-12-04] MEDS ORDERED: LEVOTHYROXINE 50 MCG (LEVOTHROID) TAB PO SCH (06:30)
[2021-12-04] MEDS ORDERED: MULTIVIT W/MINERALS TAB (THERAGRAN M) PO SCH (07:00)
--- NOTE | 2021-12-04 07:50 | Cardiology Progress Note ---
Subjective Date Seen by Provider: Dec 04, 2021 Time Seen by Provider: 07:49 Subjective/Events-last exam Patient was seen at bedside, laying down comfortably, denied any chest pain or shortness of breath, feeling better. No new complaint. Review of Systems General: No Chills, No Night Sweats, No Fatigue, No Malaise, No Appetite, No Other HEENT: No Head Aches, No Visual Changes, No Eye Pain, No Ear Pain, No Dysphasia, No Sinus Congestion, No Post Nasal Drip, No Sore Throat, No Other Pulmonary: No Dyspnea, No Cough, No Pleuritic Chest Pain, No Other Cardiovascular: No: Chest Pain, Palpitations, Orthopnea, Paroxysmal Noc. Dyspnea, Edema, Lt Headedness, Other Objective-Cardiology Exam Last Set of Vital Signs Vital Signs 12/04/21 12/04/21 03:38 03:41 Temp 36.2 Pulse 71 Resp 20 B/P (MAP) 115/52 (73) Pulse Ox 96 O2 Delivery Room Air I&O Intake and Output 12/04/21 00:00 Intake Total 650 ml Output Total 500 ml Balance 150 ml Intake Oral 650 ml Output Urine Total 500 ml # Voids 3 Daily Weight Change No General: Alert, Oriented X3, Cooperative HEENT: Atraumatic, PERRLA Neck: Supple, No JVD, No Thyromegaly Lungs: Clear to Auscultation, Normal Air Movement Heart: Regular Rate, Normal S1, Normal S2, No Murmurs Abdomen: Normal Bowel Sounds, Soft, No Tenderness, No Hepatosplenomegaly, No Masses Extremities: No Clubbing, No Cyanosis, No Edema, Normal Pulses, No Tenderness/Swelling Skin: No Rashes, No Breakdown, No Significant Lesion Neuro: Normal Gait, Normal Speech, Strength at 5/5 X4 Ext, Normal Tone, Sensation Intact Psych/Mental Status: Mental Status NL, Mood NL Results Lab Laboratory Tests 12/04/21 05:00 A/P-Cardiology Admission Diagnosis Coronary artery disease Hypertension Hyperlipidemia Assessment/Plan Coronary artery disease, status post complex intervention to the right coronary artery with stent deployment with excellent results. Hypertension, monitor blood pressure Hyperlipidemia, monitor lipids Planning for discharge today MARY NESBITT MD Dec 04, 2021 07:50
[2021-12-04 07:57] VITALS: BP 115/52
[2021-12-04] MEDS: CIPROFLOXACIN 500 MG (CIPRO) TABLET PO SCH (08:56)
[2021-12-04] MEDS ORDERED: LOSARTAN 100 MG (COZAAR) TABLET PO SCH (09:00)
[2021-12-04] MEDS ORDERED: FAMOTIDINE 20 MG (PEPCID) TABLET PO SCH (09:00)
[2021-12-04] MEDS ORDERED: CLOPIDOGREL 75 MG (PLAVIX) TABLET PO SCH (09:00)
[2021-12-04] MEDS ORDERED: ASPIRIN E.C. 81 MG (ECOTRIN) TAB PO SCH (09:00)
== END 2021-12-04 09:50 | disposition home or self-care (01) ==
LOC: CATH 09:00 → CSD 10:38 → CATH 12-04 09:50
PROVIDERS: ATTEND Internal Medicine Cardiovascular Disease
DX: I25.10 Atherosclerotic heart disease of native coronary artery without angina pectoris (principal); I48.0 Paroxysmal atrial fibrillation; E78.5 Hyperlipidemia, unspecified; I44.7 Left bundle-branch block, unspecified; I25.89 Other forms of chronic ischemic heart disease; I11.0 Hypertensive heart disease with heart failure; I50.9 Heart failure, unspecified; R00.1 Bradycardia, unspecified; I65.23 Occlusion and stenosis of bilateral carotid arteries; Z79.899 Other long term (current) drug therapy; Z79.82 Long term (current) use of aspirin; Z87.891 Personal history of nicotine dependence
CPT/HCPCS: 71045; 80048; 80053; 80061; 81000; 85027 ×2; 85610; 85730; 87077; 87081; 87088; 87186; 93005 ×2; 93458; C1725; C1769 ×2; C1874; C1887 ×2; C1894; C9600; 36415

== ENCOUNTER → 2022-08-04 | Outpatient (CLI) | payer MEDICARE ==
[~2022-08-04] MED LIST changes: +CIPR500T5 PO; +CLOP75TA28 PO; -HEParin (CATH LAB) 2,000 ML IV ONE; -LIDOCAINE 1% INJ 20 ML VIAL ONE; -NS IV 1000 ML 1,000 ML IV SCH; -NS IV 1000 ML 1,000 ML ONE
== END ==
LOC: CARD 09:03
PROVIDERS: ATTEND Internal Medicine Cardiovascular Disease
DX: I11.9 Hypertensive heart disease without heart failure (principal); I08.0 Rheumatic disorders of both mitral and aortic valves; I25.10 Atherosclerotic heart disease of native coronary artery without angina pectoris
CPT/HCPCS: 93306

== ENCOUNTER → 2022-11-18 | Outpatient (CLI) | payer MEDICARE ==
[~2022-11-18] VITALS: Ht 157 cm; Wt 59.0 kg
[~2022-11-18] MED LIST changes: +CATHETER FLUSH 10 ML SYR IVP PRN; +REGADENOSON 0.4 MG/5 ML SYR (LEXISCAN) IV ONE
[2022-11-18 09:05] VITALS: BP 111/59
[2022-11-18 09:08] VITALS: BP 108/59
--- NOTE | 2022-11-18 13:19 | Cardiology Stress Test Report ---
Stress Test Report Date of Procedure/Referring: Date of Procedure: Nov 18, 2022 PCP Viola Oliveira DO Admitting Physician Admitting Physician: Attending Physician: Gerry Avery MD Indications: CP Baseline Heart Rate: 46 Baseline Blood Pressure: Blood Pressure Systolic: 108 Blood Pressure Diastolic: 59 Baseline Vitals Vital Signs Date Time Temp Pulse Resp B/P (MAP) Pulse Ox O2 Delivery O2 Flow Rate FiO2 11/18/22 09:05 68 17 111/59 (76) 98 Room Air Baseline EKG: Baseline EKG: LBBB Summary After explaining the procedure to the patient, she signed a consent and then brought to the stress nuclear laboratory. Patient received 0.4 mg Lexiscan for stress test, ECG, heart rate and blood pressure were monitored continuously. Resting and stress dose of radio tracer were injected, imaging was acquired and reviewed in short axis, horizontal long axis and vertical long axis views. TID: 1.16 SSS: 11 SDS: 3 EF: 49 Patient tolerated Lexiscan well Baseline sinus bradycardia with left bundle branch block noted during test Baseline hypertension persisted during test Fixed defect involving the septum, reversible ischemia involving the inferior wa ll and inferior apex Normal left ventricular size with hypokinesia of the inferior wall and apex, ejection fraction 49% Copy Copies To 1: VIOLA OLIVEIRA BASHAR J MD Nov 18, 2022 13:19
== END ==
LOC: CARD 07:13
PROVIDERS: ATTEND Internal Medicine Cardiovascular Disease
DX: I25.10 Atherosclerotic heart disease of native coronary artery without angina pectoris (principal); I10 Essential (primary) hypertension
CPT/HCPCS: 78452; 93017; A9502

== ENCOUNTER 2022-12-09 06:56 | Day surgery (SDC) | payer MEDICARE ==
[2022-12-09] VITALS (17 sets, daily range): BP systolic 129–180; BP diastolic 50–81
[~2022-12-09] VITALS: Ht 157 cm; Wt 60.8 kg
[~2022-12-09 06:56] MED LIST changes: -CATHETER FLUSH 10 ML SYR IVP PRN; -REGADENOSON 0.4 MG/5 ML SYR (LEXISCAN) IV ONE
[2022-12-09] MEDS ORDERED: NS IV 1000 ML 1,000 ML ONE (07:04)
[2022-12-09] MEDS ORDERED: HEParin (CATH LAB) 2,000 ML IV ONE (07:04)
[2022-12-09] MEDS ORDERED: LIDOCAINE 1% INJ 20 ML VIAL ONE (07:04)
[2022-12-09] MEDS ORDERED: NS IV 1000 ML 1,000 ML IV SCH (07:15)
--- NOTE | 2022-12-09 07:46 | Diagnostic Imaging Report ---
EXAMINATION: Chest radiograph, portable AP view. DATE: 12/09/2022 7:38 AM INDICATION: 82-year-old female, exam prior to heart catheterization. COMPARISON: December 03, 2021. FINDINGS: Heart size and mediastinal contours are unchanged. There is no identified pneumothorax. There is no large pleural effusion. There is no identified focal airspace consolidation. 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 There is scoliosis and multilevel degenerative changes of the spine. IMPRESSION: 1. No identified acute cardiopulmonary abnormality. Dictated by: Dictated on workstation # [id number]
[2022-12-09 07:48] LABS: HEMATOCRIT 39 % (35-52); HEMOGLOBIN 13.7 g/dL (11.5-16.0); MEAN CORPUSCULAR HEMOGLOBIN 32 pg (25-34); MEAN CORPUSCULAR HGB CONC 35 g/dL (32-36); MEAN CORPUSCULAR VOLUME 92 fL (80-99); MEAN PLATELET VOLUME 8.9 fL (9.0-12.2); PLATELET COUNT 289 10^3/uL (130-400); WHITE BLOOD COUNT 8.5 10^3/uL (4.3-11.0)
[2022-12-09 08:01] LABS: BACTERIA,URINE TRACE /HPF; BILIRUBIN,URINE NEGATIVE (NEGATIVE); CLARITY,URINE CLEAR; COLOR,URINE YELLOW; GLUCOSE, URINE (UA) NEGATIVE (NEGATIVE); KETONES,URINE NEGATIVE (NEGATIVE); LEUKOCYTE ESTERASE ,URINE NEGATIVE (NEGATIVE); NITRITE,URINE NEGATIVE (NEGATIVE); PH,URINE 6.5 (5-9); PROTEIN,URINE NEGATIVE (NEGATIVE)
[2022-12-09 08:01] LABS: ALBUMIN 4.5 GM/DL (3.2-4.5); BILIRUBIN,TOTAL 0.6 MG/DL (0.1-1.0); CALCIUM 9.8 MG/DL (8.5-10.1); CREATININE SERUM 1.03 MG/DL (0.60-1.30); POTASSIUM 3.5 MMOL/L (3.6-5.0); TOTAL PROTEIN 7.3 GM/DL (6.4-8.2)
[2022-12-09 08:06] LABS: PROTHROMBIN TIME PATIENT 12.9 SEC (12.2-14.7)
[2022-12-09] MEDS ORDERED: CLOP75TA28 PO (08:10)
[2022-12-09] MEDS ORDERED: BETA15CR14 TP (08:10)
[2022-12-09] MEDS ORDERED: GLYC1DRO OP (08:10)
[2022-12-09] MEDS ORDERED: VERAPAMIL 5 MG/2 ML (CALAN) VIAL IV ONE (08:53)
[2022-12-09] MEDS ORDERED: HEParin 1000 UNIT/ML (10ML VIAL) FOR BOLUS ONE (08:53)
[2022-12-09] MEDS ORDERED: fentaNYL INJECTION 100 MCG/2 ML VIAL ONE (08:53)
[2022-12-09] MEDS ORDERED: MIDAZOLAM INJ 5 MG/5 ML VIAL ONE (08:53)
[2022-12-09] MEDS ORDERED: NITRO DRIP 25000 MCG/D5W 250 ML IV ONE (08:53)
--- NOTE | 2022-12-09 08:55 | Cardiac Procedure Note-CS/ASA ---
Pre-Procedure Note Pre-Op Procedure Note Date of Available H&P: Nov 19, 2022 Date H&P Reviewed: Dec 09, 2022 Time H&P Reviewed: 08:55 History & Physical: H&P Reviewed, Patient Examed, No changes noted Pre-Operative Diagnosis: coronary artery disease Moderate Sedation PreProcedure Time 08:55 ASA Score 3 Airway Lungs Heart ASA score ASA 1: a normal healthy patient ASA 2: a patient with a mild systemic disease (mid diabetes, controlled hypertension, obesity ASA 3: a patient with a severe systemic disease that limits activity (angina, COPD, prior Myocardial infarction) ASA 4: a patient with an incapacitating disease that is a constant threat to life (CHF, renal failure) ASA 5: a moribund patient not expected to survive 24 hrs. (ruptured aneurysm) ASA 6: a declared brain- patient whose organs are being harvested. For emergent operations, add the letter E after the classification Mallampati Classification Grade 3 Sedation Plan Analgesia, Amnesia, Plan communicated to team members, Discussed options with patient/fam, Discussed risks with patient/fam The patient is an appropriate candidate to undergo the planned procedure, sedation, and anesthesia. The patient immediately re-assessed prior to indication. MARY NESBITT MD Dec 09, 2022 08:55
[2022-12-09] MEDS ORDERED: CLOPIDOGREL 300 MG TABLET PO ONE (10:03)
[2022-12-09] MEDS ORDERED: ASPIRIN 325 MG TABLET ONE (10:03)
--- NOTE | 2022-12-09 10:13 | Cardiac Cath Report ---
Cardiac Cath Report Physician (s)/Boom Master (s) Physician MARY NESBITT MD Pre-Procedure Diagnosis Pre-Procedure Diagnosis: coronary artery disease Post-Procedure Note Procedure Start Date: Dec 09, 2022 Name of Procedure: Left heart catheterization Aortic arch angiogram Balloon angioplasty to the right coronary artery Findings/Procedure Note PROCEDURE NOTE: 84-year-old lady with known coronary artery disease, had a stent placed in 2021 in the right coronary artery, had an abnormal stress test with inferior wall ischemia scheduled for cardiac catheterization possible PTCA. After explaining the procedure to the patient, all pros and cons were explained, all questions were answered. The patient signed the consent and then she was placed in the cardiac catheterization laboratory. Groin was prepped in SL fashion local anesthesia was used. Sheath placed in the right radial artery, I attempted to advance the wire through the brachiocephalic artery using Glidewire and J-wire without success due to the severe talk tortuosity and calcification. I aborted that time performed the radial sheath was flushed then I proceeded with placement of sheath in the right femoral artery. Isma' right and left catheter were used to access the coronary system. Pigtail was used to access the left ventricular cavity. Left ventriculogram was not done but I used a pigtail catheter to do aortic arch angiogram after the procedure to evaluate the brachiocephalic artery and the arc h. Patient had 80% stenosis in-stent restenosis in the mid to distal right coronary artery Received a total of 6000 units of heparin AL-1 guide was used BMW wire was advanced distally Multiple balloon inflation using noncompliant NC trek 3 x 20 up to 16 duncan with 0% residual stenosis. At the end of the procedure the sheath was removed. Closure device deployed in the groin and wrist band was used on the radial sheath FINDINGS: Hemodynamics LV 114/9, end-diastolic pressure of 9 Aorta 117/45 mean of 63 ANATOMY: Left Main is calcified with 40% ostial stenosis Left Anterior Descending is moderate in size with 40% stenosis in the mid LAD, second diagonal artery has 80% mid stenosis the artery is less than 1.5 mm in diameter Left Circumflex is moderate in size with no obstructive disease Right Coronary Artery is a large dominant artery known to have 2 stents proximally 2.5 and overlapped with a 3.0 stent. 80% in-stent restenosis, successful balloon angioplasty using 3 x 20 noncompliant balloon deployed at 16 duncan with 0% residual stenosis LV Gram was not done, pressure was measured Aorta evaluation done with aortic arch angiogram showed calcified aortic arch no dissection or aneurysm the brachiocephalic artery is heavily tortuous and calcified with no obstructive disease the left carotid and left subclavian arteries are normal with mild calcification PERCUTANEOUS INTERVENTION: Pre stenosis 80% Post Stenosis 0% Pre KATHI flow 2 Post KATHI flow 3 Dominance right coronary artery CONCLUSION: 40% ostial left main and mid LAD, nonobstructive disease, smaller artery and tortuous artery and had no ischemia in the anterior wall on stress test 80% stenosis in the mid second diagonal artery less than 1.5 mm in diameter not amendable to intervention and no ischemia noted in the anterior or lateral wall on stress test 80% in-stent restenosis in the right coronary artery successful noncompliant balloon with 3 x 20 with 0% residual stenosis Normal left ventricular end-diastolic pressure Heavily tortuous brachiocephalic artery and calcified. Radial procedure was aborted DISCUSSION AND RECOMMENDATION: Patient was loaded with aspirin and Plavix again and we will maximize medical therapy Estimated blood loss (mL): 25 ml Contrast Amount: 65 ml Total Radiation Dose: 516 mGy Post-Procedure Diagnosis Post-operative diagnosis: Coronary artery disease Hypertension Hyperlipidemia Chest pain MARY NESBITT MD Dec 09, 2022 10:13
[2022-12-09] MEDS ORDERED: PATIENT MAY USE OWN MEDS, ALL PO SCH (10:15)
[2022-12-09] MEDS ORDERED: DICLOFENAC 1% GEL 100 GM TUBE TP PRN (10:15)
[2022-12-09] MEDS ORDERED: BETAMETHASONE DIPROPIONATE 0.05% TP PRN (10:15)
[2022-12-09] MEDS ORDERED: NON-FORMULARY MEDICATION 1 EA EA (Alendronate Sodium 70 MG) PO SCH (10:15)
[2022-12-09] MEDS ORDERED: ARTIFICAL TEARS Ophth solution 0.4 ML UNIT DOSE OU PRN (11:00)
[2022-12-09] MEDS ORDERED: DICLOFENAC 1% GEL 50 GM TUBE TP PRN (11:00)
[2022-12-09] MEDS: NS IV 1000 ML 1,000 ML IV SCH ×4 (12:42→22:34)
[2022-12-09] MEDS ORDERED: THERAPEUTIC MULTIVITAMIN W/MINERALS TABLET PO SCH (21:00)
[2022-12-09] MEDS ORDERED: ASPIRIN enteric coated 81MG TABLET PO SCH (21:00)
[2022-12-10] VITALS: BP 172/77
[2022-12-10] MEDS ORDERED: oxyCODONE/ACETAMINOPHEN 5/325MG TABLET PO ONE (03:00)
[2022-12-10] MEDS ORDERED: oxyCODONE/ACETAMINOPHEN 5/325MG TABLET ONE (03:34)
[2022-12-10 04:00] VITALS: BP 170/67
[2022-12-10 04:48] LABS: HEMATOCRIT 34 % (35-52); HEMOGLOBIN 12.1 g/dL (11.5-16.0); MEAN CORPUSCULAR HEMOGLOBIN 33 pg (25-34); MEAN CORPUSCULAR HGB CONC 36 g/dL (32-36); MEAN CORPUSCULAR VOLUME 91 fL (80-99); MEAN PLATELET VOLUME 9.1 fL (9.0-12.2); PLATELET COUNT 242 10^3/uL (130-400); WHITE BLOOD COUNT 11.7 10^3/uL (4.3-11.0)
[2022-12-10 05:12] LABS: CALCIUM 8.5 MG/DL (8.5-10.1); CREATININE SERUM 0.79 MG/DL (0.60-1.30); POTASSIUM 2.9 MMOL/L (3.6-5.0)
[2022-12-10] MEDS: NS IV 1000 ML 1,000 ML IV SCH ×2 (05:20→05:21)
--- NOTE | 2022-12-10 06:29 | Discharge Inst-Post CATH ---
Discharge Inst-CATH/EP Problems Reviewed?: Yes Post Cardiac Cath/EP D/C Inst Follow Up/Plan Appointment with Dr Avery in 2 weeks <b>CARDIAC CATH/EP PROCEDURE DISCHARGE INSTRUCTIONS</b> ACTIVITY * Go Home directly and rest. * Limit activity of the leg (or wrist if it was used) for 7 days including aerobics, swimming, jogging, bicycling, etc. * Restrict stair-climbing for 7 days if possible, if not, climb up with your non-cath leg, then bring together on the same step. * Avoid lifting, pushing, pulling or excessive movement of the affected extremity for 7 days. * Customary sexual activity may be resumed after 2 days-use caution not to use a position that strains or causes pain to the affected extremity. * No driving for 24 hours. * NO SMOKING. * Avoid straining for bowel movements for 7 days. * Gentle walking on level ground is allowed. * Returning to work will depend on the type of procedure and the results. Your doctor will discuss this with you. CALL YOUR DOCTOR FOR ANY OF THE FOLLOWING: *If bleeding from the puncture site occurs- Apply gentle pressure to site with clean cloth and call your doctor or EMS. * If a knot or lump forms under the skin, increases in size, or causes pain. * If bruising appears to be worsening or moving further down your leg instead of disappearing. * Temperature above 101 F. CARE OF YOUR GROIN INCISION; * Bruising or purple discoloration of the skin near the puncture site is common. * You may shower only, no bathtub bathing for 5 days. Be careful to avoid slipping as your leg may feel stiff. * If a closure device was used on your femoral artery, please see the attached guide regarding care of the device and your leg. * Leave dressing on FOR 24 hours. CARE OF YOUR WRIST INCISION; * Bruising or purple discoloration of the skin near the puncture site is common. * You may shower. * DO NOT submerge wrist. * Leave dressing on FOR 24 hours. MARY AVERY MD Dec 10, 2022 06:29
[2022-12-10] MEDS ORDERED: POTASSIUM CHLORIDE 20 MEQ TABLET PO ONE (06:30)
[2022-12-10] MEDS ORDERED: LEVOTHYROXINE 50 MCG TABLET PO SCH (06:30)
[2022-12-10 08:00] VITALS: BP 153/63
--- NOTE | 2022-12-10 08:23 | Cardiology Progress Note ---
Subjective Date Seen by Provider: Dec 10, 2022 Time Seen by Provider: 08:22 Subjective/Events-last exam Patient was seen at bedside complaining of pain in her right groin. Review of Systems General: No Chills, No Night Sweats, No Fatigue, No Malaise, No Appetite, No Other Pulmonary: No Dyspnea, No Cough, No Pleuritic Chest Pain, No Other Cardiovascular: No: Chest Pain, Palpitations, Orthopnea, Paroxysmal Noc. Dyspnea, Edema, Lt Headedness, Other Objective-Cardiology Exam Last Set of Vital Signs Vital Signs 12/10/22 08:00 Temp 36.4 Pulse 78 Resp 18 B/P (MAP) 153/63 (93) Pulse Ox 96 O2 Delivery Room Air I&O Intake and Output 12/10/22 00:00 Intake Total 350 ml Balance 350 ml Intake Oral 350 ml # Voids 1 # Bowel Movements 1 Daily Weight Change No General: Alert, Oriented X3, Cooperative HEENT: Atraumatic, PERRLA Neck: Supple, No JVD, No Thyromegaly Lungs: Clear to Auscultation, Normal Air Movement Heart: Regular Rate, Normal S1, Normal S2, No Murmurs Abdomen: Normal Bowel Sounds, Soft, No Tenderness, No Hepatosplenomegaly, No Masses Extremities: No Clubbing, No Cyanosis, No Edema, Normal Pulses, No Tenderness/Swelling Skin: No Rashes, No Breakdown, No Significant Lesion Neuro: Normal Gait, Normal Speech, Strength at 5/5 X4 Ext, Normal Tone, Sensation Intact Psych/Mental Status: Mental Status NL, Mood NL Results Lab Laboratory Tests 12/10/22 04:27 A/P-Cardiology Assessment/Plan Coronary artery disease, status post balloon angioplasty for in-stent restenosis Hypertension, monitor blood pressure Hyperlipidemia Right groin pain, responded to Percocet Planning for discharge and follow-up as an outpatient MARY NESBITT MD Dec 10, 2022 08:23
[2022-12-10] MEDS ORDERED: OXYC1TAB87 PO (08:24)
[2022-12-10] MEDS ORDERED: LOSARTAN PO SCH (09:00)
[2022-12-10] MEDS ORDERED: HCTZ PO SCH (09:00)
[2022-12-10] MEDS ORDERED: CALCIUM CARBONATE 600 MG +VITAMIN D TABLET PO SCH (09:00)
[2022-12-10] MEDS ORDERED: LOSARTAN 100 MG TABLET PO SCH (09:00)
[2022-12-10] MEDS ORDERED: dilTIAZem ER 240 MG CAPSULE PO SCH (09:00)
[2022-12-10] MEDS ORDERED: CLOPIDOGREL 75 MG TABLET PO SCH (09:00)
[2022-12-10] MEDS ORDERED: FAMOTIDINE 20 MG TABLET PO SCH (09:00)
== END 2022-12-10 09:45 | disposition home or self-care (01) ==
LOC: CATH 06:56 → CSD 10:20 → CATH 12-10 09:45
PROVIDERS: ATTEND Internal Medicine Cardiovascular Disease
DX: I25.10 Atherosclerotic heart disease of native coronary artery without angina pectoris (principal); E78.5 Hyperlipidemia, unspecified; I48.0 Paroxysmal atrial fibrillation; T50.995A Adverse effect of other drugs, medicaments and biological substances, initial encounter; I50.31 Acute diastolic (congestive) heart failure; I11.0 Hypertensive heart disease with heart failure; I44.7 Left bundle-branch block, unspecified; I65.23 Occlusion and stenosis of bilateral carotid arteries; R10.30 Lower abdominal pain, unspecified; E78.2 Mixed hyperlipidemia; R55 Syncope and collapse; R00.1 Bradycardia, unspecified; Z95.5 Presence of coronary angioplasty implant and graft; Z79.82 Long term (current) use of aspirin; Z79.01 Long term (current) use of anticoagulants; Z79.899 Other long term (current) drug therapy; Z87.891 Personal history of nicotine dependence
CPT/HCPCS: 71045; 80048; 80053; 80061; 81000; 85027 ×2; 85347; 85610; 85730; 87077; 87081; 87088; 92920; 93005 ×2; 93458; 93567; C1725; C1760; C1769 ×2; C1887; C1894 ×2; 36415